=== PATIENT | female | born 1945 | race Two or more races ===

== ENCOUNTER 2017-08-02 03:24 | Inpatient (IN) | payer MEDICAID ==
[~2017-08-02] VITALS: Ht 152.4 cm; Wt 65.9 kg
[2017-08-02 04:06] LABS: Basophils # (auto) 0 uL; Basophils % (auto) 0.7 % (0.0-2.0); Eosinophils # (auto) 0 uL; Eosinophils % (auto) 0.6 % (0.0-7.0); Hematocrit 47.6 % (36.0-46.0); Hemoglobin 16.9 g/dL (12.2-16.2); Lymphocytes % (auto) 17.8 % (10.0-50.0); Mean Corpuscular Hemoglobin 32.3 pg (28.0-32.0); Mean Corpuscular Hgb Conc. 35.6 g/dL (32.0-36.0); Mean Corpuscular Volume 90.7 fL (80.0-100.0); Monocytes # (auto) 0.7 uL; Monocytes % (auto) 11.4 % (0.0-12.0); Neutrophils % (auto) 69.5 % (37.0-80.0); Nucleated Red Blood Cells % 0.2 %; Platelet Count (auto) 244 10^3/uL (140-450); Red Blood Cells 5.25 10^6/uL (4.0-5.20); Red Cell Distribution Width 13.1 % (11.8-14.3); White Blood Cell 5.8 10^3/uL (4.4-10.8)
[2017-08-02 04:24] LABS: Albumin 4.4 g/dL (3.4-5.0); BUN/Creatinine Ratio 13.3; Calcium 9.4 mg/dL (8.5-10.1); Potassium 3.7 mmol/L (3.5-5.1)
[2017-08-02 04:27] LABS: Bilirubin, Total 1.2 mg/dL (0.2-1.0); Total Protein 8.3 g/dL (6.4-8.2)
[2017-08-02 05:01] LABS: Urine Bacteria NONE SEEN /hpf (None Seen); Urine Blood TRACE /uL (Negative); Urine Mucus FEW (None Seen); Urine Specific Gravity 1.022 (1.001-1.035); Urine WBC 2 /hpf (0 - 5)
[2017-08-02] MEDS ORDERED: NALBUPHINE HCL 10 MG/1ml INJECTION IV ONE (06:00)
[2017-08-02] MEDS ORDERED: ONDANSETRON HCL 4 MG/2 ML VIAL IV ONE (06:00)
[2017-08-02] MEDS ORDERED: SODIUM CHLORIDE 0.9% 500 ML IVB ONE (07:36)
[2017-08-02] MEDS ORDERED: PANTOPRAZOLE 40 MG/10 ML VIAL IV STA (07:36)
[2017-08-02] MEDS ORDERED: PROCHLORPERAZINE EDISYLATE 5 MG/ML 2ML VIAL IV ONE (07:45)
[2017-08-02] MEDS ORDERED: NITROGLYCERIN 0.4 MG SL TAB SL PRN (08:45)
[2017-08-02] MEDS ORDERED: HYDROcodone-ACET 5/325MG TAB PO PRN (08:45)
[2017-08-02] MEDS ORDERED: PROMETHAZINE HCL 25 MG/ML 1ML IV PRN (08:45)
[2017-08-02] MEDS ORDERED: ACETAMINOPHEN 500 MG TAB PO PRN (08:45)
[2017-08-02] MEDS ORDERED: LORazepam 0.5 MG TAB PO PRN (08:45)
[2017-08-02] MEDS ORDERED: TEMAZEPAM 15 MG CAP PO PRN (08:45)
[2017-08-02] MEDS ORDERED: MORPHINE SULFATE 4 MG/ML SYR/VIAL IV PRN ×2 (08:45)
[2017-08-02] MEDS ORDERED: FAMOTIDINE (10MG/ML) 2ML VL IV SCH (08:45)
[2017-08-02] MEDS: SODIUM CHLORIDE 0.9% 1,000 ML IV SCH ×2 (08:59→18:44)
[2017-08-02 09:18] LABS: Hepatitis B Surface Antibody Negative
[2017-08-02 09:30] LABS: Hepatitis B Surface Antigen Negative (Negative)
[2017-08-02] MEDS: cefTRIAXone 1GM/10ml IVPUSH 10 ML IV SCH (09:39)
[2017-08-02 09:57] LABS: Hepatitis A Total Antibody Positive; Hepatitis C Antibody Negative (Negative)
[2017-08-02 10:35] LABS: Hepatitis B Core Total AB Positive
[2017-08-02] MEDS: PANTOPRAZOLE 40 MG TAB PO SCH ×2 (12:00→20:51)
[2017-08-02] MEDS: metroNIDAZOLE 500MG/100ML 100 ML IV SCH ×2 (12:31→18:35)
[2017-08-02 15:30] LABS: INR 0.95 (0.9-1.15); Partial Thromboplastin Time 31.7 sec (22.64-33.71); Prothrombin Time 10.4 sec (9.37-12.3)
[2017-08-02 17:33] VITALS: BP 148/85
[2017-08-02] MEDS ORDERED: LOSA50TA6 PO (18:18)
[2017-08-02] MEDS ORDERED: ACET-1156 PO (18:18)
[2017-08-02] MEDS ORDERED: AMIT25TA9 PO (18:18)
[2017-08-02] MEDS ORDERED: IBUP600T27 PO (18:18)
[2017-08-02 22:00] VITALS: BP 137/40
[2017-08-03] MEDS: metroNIDAZOLE 500MG/100ML 100 ML IV SCH ×3 (00:32→13:54)
[2017-08-03] MEDS: SODIUM CHLORIDE 0.9% 1,000 ML IV SCH ×2 (04:44→13:54)
[2017-08-03 05:00] VITALS: BP 127/72
[2017-08-03 07:41] LABS: Albumin 3.4 g/dL (3.4-5.0); BUN/Creatinine Ratio 20.3; Calcium 8.6 mg/dL (8.5-10.1); Potassium 3.4 mmol/L (3.5-5.1)
[2017-08-03 07:44] LABS: Bilirubin, Total 0.9 mg/dL (0.2-1.0); Total Protein 6.6 g/dL (6.4-8.2)
[2017-08-03 08:00] VITALS: BP 121/65
[2017-08-03] MEDS ORDERED: NALOXONE HCL 0.4 MG/ML VIAL ONE (08:21)
[2017-08-03] MEDS ORDERED: FLUMAZENIL 0.1 MG/ML INJ 10ML MDV IV ONE (08:21)
[2017-08-03] MEDS ORDERED: LIDOCAINE VISCOUS 2% 15ML UD ONE (08:21)
[2017-08-03] MEDS ORDERED: SODIUM CHLORIDE LOCK 10 ML ONE (08:21)
[2017-08-03] MEDS ORDERED: MIDAZOLAM HCL 5 MG/ML-1ML VIAL ONE (08:22)
[2017-08-03] MEDS ORDERED: fentaNYL CITRATE 100 MCG/2 ML VL ONE (08:23)
[2017-08-03] MEDS ORDERED: diphenhdrAMINE HCL 50 MG/1 ML VL ONE (08:23)
[2017-08-03] MEDS: cefTRIAXone 1GM/10ml IVPUSH 10 ML IV SCH (08:45)
[2017-08-03 09:00] VITALS: BP 121/65
[2017-08-03 13:00] VITALS: BP 144/72
[2017-08-03] MEDS: PANTOPRAZOLE 40 MG TAB PO SCH (13:54)
[2017-08-03 14:49] VITALS: BP 144/72
== END 2017-08-03 16:30 | disposition home or self-care (01) | DRG 392 ==
LOC: ER 03:28 → TELE 03:29 → TELE-WESTW 16:49
PROVIDERS: ADMIT Internal Medicine; ATTEND Internal Medicine
PROC: 0DB68ZX Excision of Stomach, Via Natural or Artificial Opening Endoscopic, Diagnostic (ICD-10-PCS; principal; 2017-08-03 11:16)
DX: K29.70 Gastritis, unspecified, without bleeding (principal); G40.909 Epilepsy, unspecified, not intractable, without status epilepticus; I25.9 Chronic ischemic heart disease, unspecified; J44.9 Chronic obstructive pulmonary disease, unspecified; E78.5 Hyperlipidemia, unspecified; E66.9 Obesity, unspecified; K76.0 Fatty (change of) liver, not elsewhere classified; I10 Essential (primary) hypertension; Z81.8 Family history of other mental and behavioral disorders; Z82.0 Family history of epilepsy and other diseases of the nervous system; Z82.5 Family history of asthma and other chronic lower respiratory diseases; Z82.49 Family history of ischemic heart disease and other diseases of the circulatory system; Z83.3 Family history of diabetes mellitus; Z82.62 Family history of osteoporosis; Z90.49 Acquired absence of other specified parts of digestive tract; Z68.28 Body mass index [BMI] 28.0-28.9, adult
CPT/HCPCS: 36415; 43239; 71045; 74176; 76705; 80053; 81001; 82150; 83690; 85025; 85610; 85652; 85730; 86141; 86704; 86706; 86708; 86803; 87340; 93005; 94761; 96361; 96374; 96375; C9113; J2250; J2405; J3490

== ENCOUNTER 2018-02-17 15:52 | Emergency (ER) | payer MEDICAID ==
[~2018-02-17 15:52] MED LIST: AMIT25TA9 PO; LOSA-46 PO
[2018-02-17 17:14] LABS: Basophils # (auto) 0.1 uL; Basophils % (auto) 0.9 % (0.0-2.0); Eosinophils # (auto) 0.1 uL; Hemoglobin 15.1 g/dL (12.2-16.2); Lymphocytes % (auto) 15.6 % (10.0-50.0); Mean Corpuscular Hemoglobin 32.1 pg (28.0-32.0); Mean Corpuscular Volume 91.6 fL (80.0-100.0); Monocytes # (auto) 0.5 uL; Monocytes % (auto) 7.4 % (0.0-12.0); Neutrophils # (auto) 4.6 uL; Neutrophils % (auto) 74.1 % (37.0-80.0); Nucleated Red Blood Cells % 0.1 %; Platelet Count (auto) 238 10^3/uL (140-450); Red Blood Cells 4.69 10^6/uL (4.0-5.20); Red Cell Distribution Width 13.2 % (11.8-14.3); White Blood Cell 6.2 10^3/uL (4.4-10.8)
[2018-02-17 17:45] LABS: Alanine Aminotransferase 404 U/L (13-56); Albumin 3.9 g/dL (3.4-5.0); Alkaline Phosphatase 213 U/L (45-117); Anion Gap 7 (5-15); Aspartate Aminotransferase 460 U/L (15-37); BUN/Creatinine Ratio 16.7; Bilirubin, Total 2.1 mg/dL (0.2-1.0); Blood Urea Nitrogen 18 mg/dL (7-18); Calcium 8.7 mg/dL (8.5-10.1); Carbon Dioxide 23 mmol/L (21-32); Chloride 112 mmol/L (98-107); GFR African American 64 mL/min; GFR Non-African American 53 mL/min; Glucose 104 mg/dL (74-106); Magnesium 2.8 mg/dL (1.6-2.6); Sodium 142 mmol/L (136-145); Total Protein 7.5 g/dL (6.4-8.2)
[2018-02-17 17:53] LABS: Urine Bacteria NONE SEEN /hpf (None Seen); Urine Blood Negative /uL (Negative); Urine Specific Gravity 1.009 (1.001-1.035); Urine WBC 1 /hpf (0 - 5)
[2018-02-17 21:36] VITALS: BP 146/85
== END 2018-02-17 21:39 | disposition home or self-care (01) ==
LOC: ER 15:54
DX: R10.13 Epigastric pain (principal); R11.2 Nausea with vomiting, unspecified; K21.9 Gastro-esophageal reflux disease without esophagitis; E78.5 Hyperlipidemia, unspecified; I10 Essential (primary) hypertension; Z90.49 Acquired absence of other specified parts of digestive tract; Z90.710 Acquired absence of both cervix and uterus
CPT/HCPCS: 36415; 74176; 80053; 81001; 83735; 84484; 85025; 93005

== ENCOUNTER 2018-02-23 15:51 | Inpatient (IN) | payer MEDICAID ==
[~2018-02-23] VITALS: Ht 152.4 cm; Wt 65.2 kg
[2018-02-23] MEDS ORDERED: SODIUM CHLORIDE 0.9% 1,000 ML IV ONE (16:23)
[2018-02-23] MEDS ORDERED: METOCLOPRAMIDE HCL 5MG/ml INJ 2ml VIAL IV ONE (16:30)
[2018-02-23] MEDS ORDERED: MORPHINE SULFATE 4 MG/ML SYR/VIAL IV ONE (16:30)
[2018-02-23 16:46] LABS: Basophils # (auto) 0 uL; Basophils % (auto) 0.6 % (0.0-2.0); Eosinophils # (auto) 0 uL; Eosinophils % (auto) 0.2 % (0.0-7.0); Hematocrit 48.1 % (36.0-46.0); Hemoglobin 16.5 g/dL (12.2-16.2); Lymphocytes # (auto) 0.4 uL; Lymphocytes % (auto) 7.4 % (10.0-50.0); Mean Corpuscular Hemoglobin 31.9 pg (28.0-32.0); Mean Corpuscular Hgb Conc. 34.4 g/dL (32.0-36.0); Mean Corpuscular Volume 92.7 fL (80.0-100.0); Monocytes # (auto) 0.4 uL; Monocytes % (auto) 6.6 % (0.0-12.0); Neutrophils # (auto) 4.6 uL; Neutrophils % (auto) 85.2 % (37.0-80.0); Nucleated Red Blood Cells % 0.1 %; Platelet Count (auto) 246 10^3/uL (140-450); Red Blood Cells 5.19 10^6/uL (4.0-5.20); Red Cell Distribution Width 13.6 % (11.8-14.3); White Blood Cell 5.4 10^3/uL (4.4-10.8)
[2018-02-23 16:48] LABS: Urine Bacteria NONE SEEN /hpf (None Seen); Urine Blood Negative /uL (Negative); Urine Mucus FEW (None Seen); Urine Specific Gravity 1.026 (1.001-1.035); Urine WBC 6 /hpf (0 - 5)
[2018-02-23 17:02] LABS: Alanine Aminotransferase 448 U/L (13-56); Albumin 4.1 g/dL (3.4-5.0); Anion Gap 10 (5-15); Aspartate Aminotransferase 236 U/L (15-37); BUN/Creatinine Ratio 11.2; Blood Urea Nitrogen 11 mg/dL (7-18); Calcium 9.7 mg/dL (8.5-10.1); Carbon Dioxide 24 mmol/L (21-32); Chloride 104 mmol/L (98-107); GFR African American 72 mL/min; GFR Non-African American 59 mL/min; Glucose 124 mg/dL (74-106); Lipase 75 U/L (73-393); Magnesium 2.5 mg/dL (1.6-2.6); Potassium 4.3 mmol/L (3.5-5.1); Sodium 138 mmol/L (136-145)
[2018-02-23 17:07] LABS: Alkaline Phosphatase 448 U/L (45-117); Bilirubin, Total 4.4 mg/dL (0.2-1.0); Total Protein 8.5 g/dL (6.4-8.2)
[2018-02-23] MEDS ORDERED: TEMAZEPAM 15 MG CAP PO PRN (18:00)
[2018-02-23] MEDS ORDERED: NITROGLYCERIN 0.4 MG SL TAB SL PRN (18:00)
[2018-02-23] MEDS ORDERED: cefTRIAXone 1GM/10ml IVPUSH 10 ML IV ONE ×2 (18:00)
[2018-02-23] MEDS ORDERED: LORazepam 0.5 MG TAB PO PRN (18:00)
[2018-02-23] MEDS: metroNIDAZOLE 500MG/100ML 100 ML IV SCH (18:29)
[2018-02-23] MEDS: SODIUM CHLORIDE 0.9% 1,000 ML IV SCH (18:29)
[2018-02-23] MEDS ORDERED: PROM25TA5 PO (18:49)
[2018-02-23] MEDS ORDERED: OMEP20TA PO (18:49)
[2018-02-23] MEDS ORDERED: PANT40TA2 PO (18:49)
[2018-02-23] MEDS ORDERED: OXYB15TA12 PO (18:49)
[2018-02-23] MEDS ORDERED: ONDA-101 SL (18:49)
[2018-02-23] MEDS ORDERED: MELO1TAB56 PO (18:49)
[2018-02-23] MEDS ORDERED: AMITRIPTYLINE HCL 25 MG TAB PO SCH (22:00)
[2018-02-23 22:12] VITALS: BP 164/94
[2018-02-23] MEDS: LOSARTAN POTASSIUM 50 MG TAB PO SCH (22:37)
[2018-02-24 00:44] VITALS: BP 164/94
[2018-02-24 03:41] VITALS: BP 149/80
[2018-02-24] MEDS: metroNIDAZOLE 500MG/100ML 100 ML IV SCH ×4 (06:00→18:00)
[2018-02-24] MEDS: MORPHINE SULF INJ 2 MG/ML SYRINGE 1ML IV PRN ×3 (06:02→11:20)
[2018-02-24] MEDS: SODIUM CHLORIDE 0.9% 1,000 ML IV SCH ×3 (07:15→15:59)
[2018-02-24 07:20] LABS: Amylase 88 U/L (25-115); Lipase 107 U/L (73-393)
[2018-02-24 08:33] VITALS: BP 152/88
[2018-02-24] MEDS: cefTRIAXone 1GM/10ml IVPUSH 10 ML IV SCH (09:50)
[2018-02-24] MEDS: PANTOPRAZOLE 40 MG TAB PO SCH (09:50)
[2018-02-24] MEDS: LOSARTAN POTASSIUM 50 MG TAB PO SCH ×2 (09:50→22:23)
[2018-02-24] MEDS: ONDANSETRON HCL 4 MG/2 ML VIAL IV PRN (11:20)
[2018-02-24 11:30] LABS: Basophils # (auto) 0 uL; Basophils % (auto) 0.6 % (0.0-2.0); Eosinophils # (auto) 0 uL; Eosinophils % (auto) 0.3 % (0.0-7.0); Hematocrit 44.6 % (36.0-46.0); Hemoglobin 15.4 g/dL (12.2-16.2); Lymphocytes # (auto) 0.6 uL; Lymphocytes % (auto) 9.8 % (10.0-50.0); Mean Corpuscular Hemoglobin 32.2 pg (28.0-32.0); Mean Corpuscular Hgb Conc. 34.5 g/dL (32.0-36.0); Mean Corpuscular Volume 93.1 fL (80.0-100.0); Monocytes # (auto) 0.5 uL; Neutrophils % (auto) 81.3 % (37.0-80.0); Nucleated Red Blood Cells % 0.1 %; Platelet Count (auto) 208 10^3/uL (140-450); Red Blood Cells 4.79 10^6/uL (4.0-5.20); Red Cell Distribution Width 13.3 % (11.8-14.3); White Blood Cell 6.1 10^3/uL (4.4-10.8)
[2018-02-24 11:59] LABS: Albumin 3.7 g/dL (3.4-5.0); BUN/Creatinine Ratio 11.8; Bilirubin, Total 5.7 mg/dL (0.2-1.0); Calcium 9.2 mg/dL (8.5-10.1); Potassium 3.5 mmol/L (3.5-5.1); Total Protein 7.5 g/dL (6.4-8.2)
[2018-02-24 12:11] VITALS: BP 150/94
[2018-02-24 17:34] VITALS: BP 157/89
[2018-02-25] MEDS: metroNIDAZOLE 500MG/100ML 100 ML IV SCH ×4 (00:15→18:02)
[2018-02-25 05:50] VITALS: BP 143/81
[2018-02-25 07:25] LABS: Albumin 3.2 g/dL (3.4-5.0); Bilirubin, Direct 1.5 mg/dL (0-0.2); Bilirubin, Total 2.7 mg/dL (0.2-1.0)
[2018-02-25] MEDS: SODIUM CHLORIDE 0.9% 1,000 ML IV SCH ×2 (07:54→20:21)
[2018-02-25 08:43] VITALS: BP 154/75
[2018-02-25] MEDS: cefTRIAXone 1GM/10ml IVPUSH 10 ML IV SCH (09:02)
[2018-02-25] MEDS: PANTOPRAZOLE 40 MG TAB PO SCH (12:08)
[2018-02-25] MEDS: LOSARTAN POTASSIUM 50 MG TAB PO SCH ×2 (12:09→22:46)
[2018-02-25 13:00] VITALS: BP 142/86
[2018-02-25] MEDS: ONDANSETRON HCL 4 MG/2 ML VIAL IV PRN (15:14)
[2018-02-25] MEDS: MORPHINE SULF INJ 2 MG/ML SYRINGE 1ML IV PRN (15:14)
[2018-02-25 17:00] VITALS: BP 140/72
[2018-02-26] MEDS: metroNIDAZOLE 500MG/100ML 100 ML IV SCH ×4 (00:13→18:00)
[2018-02-26 06:00] VITALS: BP 122/66
[2018-02-26 06:21] LABS: Basophils # (auto) 0 uL; Basophils % (auto) 0.9 % (0.0-2.0); Eosinophils # (auto) 0.2 uL; Eosinophils % (auto) 3.9 % (0.0-7.0); Hemoglobin 14.5 g/dL (12.2-16.2); Lymphocytes # (auto) 0.9 uL; Lymphocytes % (auto) 17.4 % (10.0-50.0); Mean Corpuscular Hgb Conc. 34.5 g/dL (32.0-36.0); Mean Corpuscular Volume 92.8 fL (80.0-100.0); Monocytes # (auto) 0.4 uL; Monocytes % (auto) 8.2 % (0.0-12.0); Neutrophils # (auto) 3.5 uL; Neutrophils % (auto) 69.6 % (37.0-80.0); Platelet Count (auto) 211 10^3/uL (140-450); Red Blood Cells 4.53 10^6/uL (4.0-5.20); Red Cell Distribution Width 13.1 % (11.8-14.3)
[2018-02-26 06:38] LABS: Potassium 3.5 mmol/L (3.5-5.1)
[2018-02-26 06:42] LABS: Albumin 3.1 g/dL (3.4-5.0); BUN/Creatinine Ratio 13.7; Calcium 8.9 mg/dL (8.5-10.1)
[2018-02-26 06:44] LABS: Total Protein 6.7 g/dL (6.4-8.2)
[2018-02-26 09:00] VITALS: BP 145/91
[2018-02-26] MEDS: PANTOPRAZOLE 40 MG TAB PO SCH (10:33)
[2018-02-26] MEDS: cefTRIAXone 1GM/10ml IVPUSH 10 ML IV SCH (10:33)
[2018-02-26] MEDS: SODIUM CHLORIDE 0.9% 1,000 ML IV SCH (10:34)
[2018-02-26] MEDS: LOSARTAN POTASSIUM 50 MG TAB PO SCH ×2 (10:34→23:05)
[2018-02-26 13:00] VITALS: BP 167/79
[2018-02-26 17:00] VITALS: BP 164/86
[2018-02-26 22:00] VITALS: BP 150/78
[2018-02-26] MEDS: MORPHINE SULF INJ 2 MG/ML SYRINGE 1ML IV PRN (22:28)
[2018-02-26] MEDS: ONDANSETRON HCL 4 MG/2 ML VIAL IV PRN (23:06)
[2018-02-27] VITALS (7 sets, daily range): BP systolic 116–176; BP diastolic 62–95
[2018-02-27] MEDS: metroNIDAZOLE 500MG/100ML 100 ML IV SCH ×5 (00:02→23:25)
[2018-02-27] MEDS: SODIUM CHLORIDE 0.9% 1,000 ML IV SCH ×3 (00:57→18:00)
[2018-02-27] MEDS: MORPHINE SULFATE 4 MG/ML SYR/VIAL IV PRN (01:36)
[2018-02-27] MEDS: cefTRIAXone 1GM/10ml IVPUSH 10 ML IV SCH (08:23)
[2018-02-27] MEDS: ONDANSETRON HCL 4 MG/2 ML VIAL IV PRN ×2 (08:23→13:50)
[2018-02-27 08:29] LABS: Albumin 3.1 g/dL (3.4-5.0); BUN/Creatinine Ratio 18.3; Potassium 3.5 mmol/L (3.5-5.1); Total Protein 6.9 g/dL (6.4-8.2)
[2018-02-27] MEDS: PANTOPRAZOLE 40 MG TAB PO SCH (10:06)
[2018-02-27] MEDS: MORPHINE SULF INJ 2 MG/ML SYRINGE 1ML IV PRN (10:06)
[2018-02-27] MEDS: LOSARTAN POTASSIUM 50 MG TAB PO SCH ×2 (10:07→21:30)
[2018-02-28] MEDS: metroNIDAZOLE 500MG/100ML 100 ML IV SCH ×4 (05:22→23:27)
[2018-02-28] MEDS: SODIUM CHLORIDE 0.9% 1,000 ML IV SCH (05:22)
[2018-02-28 05:39] VITALS: BP 140/92
[2018-02-28 06:07] LABS: Basophils # (auto) 0 uL; Eosinophils # (auto) 0.1 uL; Eosinophils % (auto) 2.6 % (0.0-7.0); Hematocrit 40.9 % (36.0-46.0); Hemoglobin 14.3 g/dL (12.2-16.2); Lymphocytes # (auto) 1.2 uL; Lymphocytes % (auto) 26.1 % (10.0-50.0); Mean Corpuscular Hemoglobin 32.3 pg (28.0-32.0); Mean Corpuscular Volume 92.3 fL (80.0-100.0); Monocytes # (auto) 0.3 uL; Monocytes % (auto) 6.4 % (0.0-12.0); Neutrophils % (auto) 63.9 % (37.0-80.0); Nucleated Red Blood Cells % 0.1 %; Platelet Count (auto) 249 10^3/uL (140-450); Red Blood Cells 4.44 10^6/uL (4.0-5.20); Red Cell Distribution Width 12.9 % (11.8-14.3); White Blood Cell 4.7 10^3/uL (4.4-10.8)
[2018-02-28 06:11] LABS: INR 0.99 (0.9-1.15); Partial Thromboplastin Time 31.2 sec (23.78-33.04); Prothrombin Time 10.6 sec (9.27-12.13)
[2018-02-28 06:30] LABS: Potassium 3.5 mmol/L (3.5-5.1)
[2018-02-28 06:36] LABS: Albumin 3.2 g/dL (3.4-5.0); BUN/Creatinine Ratio 19.7; Calcium 9.3 mg/dL (8.5-10.1)
[2018-02-28 06:40] LABS: Bilirubin, Total 1.8 mg/dL (0.2-1.0); Total Protein 6.7 g/dL (6.4-8.2)
[2018-02-28 08:00] VITALS: BP 164/99
[2018-02-28] MEDS: cefTRIAXone 1GM/10ml IVPUSH 10 ML IV SCH (09:11)
[2018-02-28] MEDS: LOSARTAN POTASSIUM 50 MG TAB PO SCH ×2 (09:12→21:16)
[2018-02-28] MEDS: PANTOPRAZOLE 40 MG TAB PO SCH (09:12)
[2018-02-28 12:00] VITALS: BP 152/102
[2018-02-28] MEDS ORDERED: IOHEXOL 300 MG/ML 100ML BOTTLE IJ ONE (12:56)
[2018-02-28] MEDS ORDERED: SUCCINYLCHOLINE CHLORIDE 20 MG/ML 10ML VIAL IV ONE (14:21)
[2018-02-28] MEDS ORDERED: MEPERIDINE HCL (50 MG/ML) 1 ML VIAL ONE (14:35)
[2018-02-28] MEDS ORDERED: fentaNYL CITRATE 100 MCG/2 ML VL ONE (14:35)
[2018-02-28] MEDS ORDERED: MIDAZOLAM HCL 1MG/1ML-2 ML VIAL ONE (14:35)
[2018-02-28] MEDS ORDERED: ETOMIDATE (2MG/ML) 20ML VIAL IV ONE (14:55)
[2018-02-28] MEDS ORDERED: DEXAMETHASONE SOD PHOS 10MG/1ML VIAL INJ ONE (14:55)
[2018-02-28] MEDS ORDERED: PROPOFOL 10 MG/ML 20 ML IV ONE (14:55)
[2018-02-28] MEDS ORDERED: ePHEDrine SULFATE 50 MG/ML AMP IV PRN (15:15)
[2018-02-28] MEDS ORDERED: MIDAZOLAM HCL 1MG/1ML-2 ML VIAL IV PRN (15:15)
[2018-02-28] MEDS ORDERED: LABETALOL HCL 5 MG/ML 4ML SYRINGE IV PRN (15:15)
[2018-02-28] MEDS ORDERED: ONDANSETRON HCL 4 MG/2 ML VIAL IV ONE (15:15)
[2018-02-28] MEDS ORDERED: HYDROmorphone HCL 2 MG/ML VL IV PRN (15:15)
[2018-02-28] MEDS ORDERED: MORPHINE SULFATE 4 MG/ML SYR/VIAL IV PRN (15:15)
[2018-02-28] MEDS ORDERED: hydrALAZINE HCL 20 MG/ML VL IV PRN (15:15)
[2018-02-28] MEDS ORDERED: KETOROLAC TROMETH 30 MG/ML 1ML VIAL IV ONE (15:15)
[2018-02-28] MEDS ORDERED: MORPHINE SULFATE 4 MG/ML SYR/VIAL IV ONE (16:00)
[2018-02-28 16:49] VITALS: BP 180/95
[2018-02-28] MEDS ORDERED: METOPROLOL TARTRATE 25 MG TAB PO ONE (17:30)
[2018-02-28 21:41] VITALS: BP 142/81
[2018-02-28 23:13] VITALS: BP 152/84
[2018-03-01] MEDS: metroNIDAZOLE 500MG/100ML 100 ML IV SCH ×4 (05:12→23:57)
[2018-03-01 05:23] VITALS: BP 143/82
[2018-03-01 06:07] LABS: Albumin 3.3 g/dL (3.4-5.0); BUN/Creatinine Ratio 22.2; Bilirubin, Total 1.3 mg/dL (0.2-1.0); Calcium 9.3 mg/dL (8.5-10.1); Total Protein 7.1 g/dL (6.4-8.2)
[2018-03-01 08:00] VITALS: BP 175/92
[2018-03-01] MEDS: cefTRIAXone 1GM/10ml IVPUSH 10 ML IV SCH (08:10)
[2018-03-01] MEDS: LOSARTAN POTASSIUM 50 MG TAB PO SCH ×2 (08:10→22:09)
[2018-03-01] MEDS: PANTOPRAZOLE 40 MG TAB PO SCH (09:30)
[2018-03-01] MEDS: METOPROLOL TARTRATE 25 MG TAB PO SCH (09:31)
[2018-03-01] MEDS: SODIUM CHLORIDE 0.9% 1,000 ML IV SCH (09:31)
[2018-03-01 09:54] VITALS: BP 175/92
[2018-03-01 13:08] VITALS: BP 143/83
[2018-03-01] MEDS ORDERED: MORPHINE SULFATE 4 MG/ML SYR/VIAL IV PRN ×2 (16:00)
[2018-03-01 16:47] VITALS: BP 140/82
[2018-03-01] MEDS: MORPHINE SULFATE 4 MG/ML SYR/VIAL IV PRN (17:16)
[2018-03-01] MEDS: ONDANSETRON HCL 4 MG/2 ML VIAL IV PRN (20:18)
[2018-03-01 23:11] VITALS: BP 173/94
[2018-03-02] MEDS: SODIUM CHLORIDE 0.9% 1,000 ML IV SCH ×2 (00:27→05:34)
[2018-03-02] MEDS: ONDANSETRON HCL 4 MG/2 ML VIAL IV PRN (01:48)
[2018-03-02] MEDS: MORPHINE SULFATE 4 MG/ML SYR/VIAL IV PRN (01:48)
[2018-03-02] MEDS: LABETALOL HCL 5 MG/ML ML 20ML VIAL IV PRN (04:31)
[2018-03-02 05:04] VITALS: BP 174/103
[2018-03-02] MEDS: metroNIDAZOLE 500MG/100ML 100 ML IV SCH ×3 (05:41→18:32)
[2018-03-02 06:38] LABS: Basophils # (auto) 0 uL; Basophils % (auto) 0.5 % (0.0-2.0); Eosinophils # (auto) 0.1 uL; Hematocrit 41.8 % (36.0-46.0); Hemoglobin 14.6 g/dL (12.2-16.2); Lymphocytes # (auto) 1.2 uL; Lymphocytes % (auto) 17.3 % (10.0-50.0); Mean Corpuscular Hemoglobin 31.9 pg (28.0-32.0); Mean Corpuscular Hgb Conc. 34.8 g/dL (32.0-36.0); Mean Corpuscular Volume 91.7 fL (80.0-100.0); Monocytes # (auto) 0.4 uL; Neutrophils # (auto) 5.2 uL; Neutrophils % (auto) 75.2 % (37.0-80.0); Nucleated Red Blood Cells % 0.1 %; Platelet Count (auto) 285 10^3/uL (140-450); Red Blood Cells 4.56 10^6/uL (4.0-5.20); Red Cell Distribution Width 13.2 % (11.8-14.3); White Blood Cell 6.9 10^3/uL (4.4-10.8)
[2018-03-02 07:03] LABS: Albumin 3.2 g/dL (3.4-5.0); BUN/Creatinine Ratio 16.2; Bilirubin, Total 3.3 mg/dL (0.2-1.0); Potassium 3.7 mmol/L (3.5-5.1); Total Protein 6.7 g/dL (6.4-8.2)
[2018-03-02 08:00] VITALS: BP 143/79
[2018-03-02] MEDS: cefTRIAXone 1GM/10ml IVPUSH 10 ML IV SCH (09:45)
[2018-03-02] MEDS: LOSARTAN POTASSIUM 50 MG TAB PO SCH ×2 (09:46→22:32)
[2018-03-02] MEDS: PANTOPRAZOLE 40 MG TAB PO SCH (09:46)
[2018-03-02] MEDS: METOPROLOL TARTRATE 25 MG TAB PO SCH (09:49)
[2018-03-02 12:47] VITALS: BP 126/69
[2018-03-02 17:00] VITALS: BP 149/81
[2018-03-02 22:00] VITALS: BP 144/66
[2018-03-03] MEDS: metroNIDAZOLE 500MG/100ML 100 ML IV SCH ×5 (00:54→23:50)
[2018-03-03] MEDS: SODIUM CHLORIDE 0.9% 1,000 ML IV SCH ×2 (04:59→19:21)
[2018-03-03 05:00] VITALS: BP 172/91
[2018-03-03] MEDS: LABETALOL HCL 5 MG/ML ML 20ML VIAL IV PRN (05:08)
[2018-03-03 06:43] LABS: Basophils # (auto) 0 uL; Basophils % (auto) 0.7 % (0.0-2.0); Eosinophils # (auto) 0.2 uL; Eosinophils % (auto) 3.1 % (0.0-7.0); Hematocrit 41.7 % (36.0-46.0); Hemoglobin 14.5 g/dL (12.2-16.2); Lymphocytes # (auto) 1.5 uL; Lymphocytes % (auto) 27.6 % (10.0-50.0); Mean Corpuscular Hemoglobin 32.2 pg (28.0-32.0); Mean Corpuscular Hgb Conc. 34.9 g/dL (32.0-36.0); Mean Corpuscular Volume 92.3 fL (80.0-100.0); Monocytes # (auto) 0.3 uL; Monocytes % (auto) 5.7 % (0.0-12.0); Neutrophils # (auto) 3.4 uL; Neutrophils % (auto) 62.9 % (37.0-80.0); Nucleated Red Blood Cells % 0.1 %; Platelet Count (auto) 276 10^3/uL (140-450); Red Blood Cells 4.51 10^6/uL (4.0-5.20); Red Cell Distribution Width 13.1 % (11.8-14.3); White Blood Cell 5.4 10^3/uL (4.4-10.8)
[2018-03-03 07:06] LABS: Albumin 3.1 g/dL (3.4-5.0); BUN/Creatinine Ratio 13.9; Bilirubin, Total 1.4 mg/dL (0.2-1.0); Calcium 9.1 mg/dL (8.5-10.1); Potassium 3.7 mmol/L (3.5-5.1); Total Protein 6.5 g/dL (6.4-8.2)
[2018-03-03 09:00] VITALS: BP 159/87
[2018-03-03] MEDS: cefTRIAXone 1GM/10ml IVPUSH 10 ML IV SCH (09:07)
[2018-03-03] MEDS: LOSARTAN POTASSIUM 50 MG TAB PO SCH ×2 (09:09→21:53)
[2018-03-03] MEDS: PANTOPRAZOLE 40 MG TAB PO SCH (09:09)
[2018-03-03] MEDS: METOPROLOL TARTRATE 25 MG TAB PO SCH (09:09)
[2018-03-03 13:22] VITALS: BP 169/82
[2018-03-03] MEDS ORDERED: ENALAPRIL MALEATE 2.5 MG TAB PO ONE (16:30)
[2018-03-03 17:00] VITALS: BP 183/96
[2018-03-03 22:00] VITALS: BP_SYST 125; BP_SYST 167; BP_DIAS 85; BP_DIAS 88
[2018-03-04 05:00] VITALS: BP 180/77
[2018-03-04] MEDS: LABETALOL HCL 5 MG/ML ML 20ML VIAL IV PRN (05:08)
[2018-03-04] MEDS: metroNIDAZOLE 500MG/100ML 100 ML IV SCH ×2 (05:24→12:23)
[2018-03-04 06:36] LABS: Albumin 3.3 g/dL (3.4-5.0); BUN/Creatinine Ratio 11.6; Bilirubin, Total 1.2 mg/dL (0.2-1.0); Calcium 9.1 mg/dL (8.5-10.1); Potassium 3.5 mmol/L (3.5-5.1)
[2018-03-04] MEDS: cefTRIAXone 1GM/10ml IVPUSH 10 ML IV SCH (09:21)
[2018-03-04] MEDS: LOSARTAN POTASSIUM 50 MG TAB PO SCH (09:23)
[2018-03-04] MEDS: PANTOPRAZOLE 40 MG TAB PO SCH (09:23)
[2018-03-04] MEDS: METOPROLOL TARTRATE 25 MG TAB PO SCH (09:23)
[2018-03-04 09:31] VITALS: BP 147/90
[2018-03-04] MEDS ORDERED: ENALAPRIL MALEATE 2.5 MG TAB PO SCH (10:00)
[2018-03-04 12:53] VITALS: BP 130/72
== END 2018-03-04 14:51 | disposition home or self-care (01) ==
LOC: ER 15:51 → TELE-CENTR 15:52
PROVIDERS: ADMIT Internal Medicine; ATTEND Internal Medicine
PROC: BF101ZZ Fluoroscopy of Bile Ducts using Low Osmolar Contrast (ICD-10-PCS; 2018-02-28)
PROC: 0FCC8ZZ Extirpation of Matter from Ampulla of Vater, Via Natural or Artificial Opening Endoscopic (ICD-10-PCS; principal; 2018-02-28 14:32)
DX: K80.33 Calculus of bile duct with acute cholangitis with obstruction (principal); E44.0 Moderate protein-calorie malnutrition; N39.0 Urinary tract infection, site not specified; E78.5 Hyperlipidemia, unspecified; I10 Essential (primary) hypertension; K21.9 Gastro-esophageal reflux disease without esophagitis; D35.00 Benign neoplasm of unspecified adrenal gland; M19.90 Unspecified osteoarthritis, unspecified site; K59.00 Constipation, unspecified; Z68.28 Body mass index [BMI] 28.0-28.9, adult; Z82.0 Family history of epilepsy and other diseases of the nervous system; Z82.49 Family history of ischemic heart disease and other diseases of the circulatory system; Z82.62 Family history of osteoporosis; Z83.3 Family history of diabetes mellitus; Z90.49 Acquired absence of other specified parts of digestive tract; Z90.710 Acquired absence of both cervix and uterus; Z82.5 Family history of asthma and other chronic lower respiratory diseases; Z91.012 Allergy to eggs; Z81.8 Family history of other mental and behavioral disorders
CPT/HCPCS: 36415; 71046; 74018; 74176; 74181; 76001; 76705; 80053; 80076; 81001; 82150; 83690; 83735; 84443; 84484; 85025; 85610; 85730; 86850; 86900; 86901; 87081; 93005; 96374; 96375; A6257; J0330; J0696; J1100; J2250; J2405; J2704; J3490

== ENCOUNTER 2019-05-19 22:43 | Emergency (ER) | payer MEDICAID ==
[~2019-05-19] VITALS: Ht 149.9 cm; Wt 72.3 kg
[~2019-05-19 22:43] MED LIST changes: -AMIT25TA9 PO; -LOSA-46 PO; +LOSA-69 PO; +MELO1TAB56 PO; +OMEP20TA PO; +ONDA-101 SL; +OXYB15TA12 PO; +PANT40TA2 PO; +PROM25TA5 PO
[2019-05-19] MEDS ORDERED: diphenhdrAMINE HCL 50 MG/1 ML VL IM ONE (23:30)
[2019-05-20] MEDS ORDERED: methylPREDNISolone SOD SUCC 125 MG/2 ML VL IV ONE (01:00)
[2019-05-20] MEDS ORDERED: SODIUM CHLORIDE 0.9% 1,000 ML IV ONE (01:00)
[2019-05-20] MEDS ORDERED: ALBUTEROL SULF 2.5 MG/0.5ML(0.5%) NEB SOLN NEB ONE (01:45)
[2019-05-20] MEDS ORDERED: IPRATROPIUM BROM 0.5 MG/2.5ML INH SOL NEB ONE (01:45)
[2019-05-20] MEDS ORDERED: EPINEPHrine HCL 1 MG/1 ML AMP SC ONE (01:45)
[2019-05-20 02:43] VITALS: BP 110/59
== END 2019-05-20 03:37 | disposition home or self-care (01) ==
LOC: ER 22:48
DX: T78.40XA Allergy, unspecified, initial encounter (principal); M19.90 Unspecified osteoarthritis, unspecified site; K21.9 Gastro-esophageal reflux disease without esophagitis; E78.00 Pure hypercholesterolemia, unspecified; I10 Essential (primary) hypertension; X58.XXXA Exposure to other specified factors, initial encounter
CPT/HCPCS: 94640; 96372; 96374; 99283; J0171; J1200; J2930; J7030; J7611; J7644

== ENCOUNTER 2024-06-09 15:36 | Emergency (ER) | payer MEDICAID ==
[~2024-06-09] VITALS: Ht 152.4 cm; Wt 68.3 kg
[~2024-06-09 15:36] MED LIST changes: +LOSA-534 PO; -LOSA-69 PO; +MELO15TA29 PO; -MELO1TAB56 PO; +PROM25TA10 PO; -PROM25TA5 PO
[2024-06-09 19:07] VITALS: BP 135/68; PULSE 80; RESP 16; TEMP 97.5; O2SAT 97
--- NOTE | 2024-06-09 19:23 | DVH ---
EXAM: CT HEAD WITHOUT CONTRAST INDICATION: headache TECHNIQUE: CT of the head without intravenous contrast. Radiation Dose : 1. Head: CT Dose: CTDI volume is 49 mGy. Dose-length product is 787 mGy*cm The dose indicators for CT are the volume Computed Tomography (CT) Dose Index (CTDIvol) and the Dose Length Product (DLP), and are measured in units of mGy and mGy-cm, respectively. These indicators are not patient dose, but values generated from the CT scanner acquisition factors. The report includes radiation exposure data for exposures received during this examination. COMPARISON: None FINDINGS: There is no evidence of acute intracranial hemorrhage, extra-axial collection, mass effect, midline s hift, herniation or hydrocephalus. The ventricles, sulci and cisterns are age appropriate. The lynn-white differentiation is intact. Patchy periventricular and subcortical white matter hypoattenuation is nonspecific but may be related to small vessel ischemic disease. The visualized paranasal sinuses and mastoid air cells are clear. The surrounding soft tissues and osseous structures are unremarkable. IMPRESSION: 1. No acute intracranial abnormality. 2. Chronic microvascular ischemic changes. Radiation optimization: All CT scans at this facility use at least one of these dose optimization rm hniques: automated exposure control mA and/or kV adjustment per patient size (includes targeted exam s where dose is matched to clinical indication) or iterative reconstruction.
--- NOTE | 2024-06-09 19:31 | ED.PDOC ---
HPI (NEURO) HPI Comments 78-year-old female presents to ER with complaints of headache x1 day. Patient reports she has been experiencing right-sided headache and "high blood pressure" x 1 day. Patient's blood pressure on arrival to ER is noted be 135/68 and patient is ambulatory, with steady gait, alert and oriented x4, in no distress. Denies any current pain and states that she did take her losartan blood pressure medication as prescribed this morning. She rates her current right-sided headache pain a 10/10. Denies fever, nausea/vomiting, numbness/tingling, dizziness, shortness of breath, chest pain, palpitations, vision changes, head injury, confusion or any further symptoms/complaints Chief Complaint: Headache Time Seen by MD: 18:08 Primary Care Provider: RAMOS Reviewed Notes: Nurses Notes, Medications, Allergies Information Source: Patient Mode of Arrival: Ambulatory Past Medical History PAST MEDICAL HISTORY: Arthritis, GERD, High Lipids, HTN Surgical History: Cholecystectomy, Hysterectomy ROD HANGER History: No Pertinent ROD HANGER History Family History Family History: Unknown Social History Smoker: Non-Smoker Alcohol: Denies ETOH Use Drugs: Denies Drug Use Lives In: Home Constitutional: denies: chills, diaphoresis, fatigue, fever, malaise, sweats, weakness, others EENTM: denies: blurred vision, double vision, ear bleeding, ear discharge, ear drainage, ear pain, ear ringing, eye pain, eye redness, hearing loss, mouth pain, mouth swelling, nasal discharge, nose bleeding, nose congestion, nose pain, photophobia, tearing, throat pain, throat swelling, voice changes, others Respiratory: denies: cough, hemoptysis, orthopnea, SOB at rest, shortness of breath, SOB with excertion, stridor, wheezing, others Cardiovascular: denies: chest pain, dizzy spells, diaphoresis, Dyspnea on exertion, edema, irregular heart beat, left arm pain, lightheadedness, palpitations, PND, syncope, others Gastrointestinal: denies: abdomen distended, abdominal pain, blood streaked bowels, constipated, diarrhea, dysphagia, difficulty swallowing, hematemesis, melena, nausea, poor appetite, poor fluid intake, rectal bleeding, rectal pain, vomiting, others Genitourinary: denies: abnormal vagina bleeding, burning, dyspareunia, dysuria, flank pain, frequency, hematuria, incontinence, pain, , vagina discharge, urgency, others Neurological: reports: others (As stated in HPI) Musculoskeletal: denies: back pain, gout, joint pain, joint swelling, muscle pain, muscle stiffness, neck pain, others Integumetry: denies: bruises, change in color, change in hair/nails, dryness, laceration, lesions, lumps, rash, wounds, others Allergic/Immunocompromised: denies: Difficulty Healing, Frequent Infections, Hives, Itching, others Hematologic/Lymphatic: denies: anemia, blood clots, easy bleeding, easy brui sing, swollen glands, others Endocrine: denies: excessive hunger, excessive sweating, excessive thirst, ex cessive urination, flushing, intolerance to cold, intolerance to heat, unexplained weight gain, unexplained weight loss, others Psychiatric: denies: anxiety, bipolar disorder, depression, hopeless, panic disorder, schizophrenia, sleepless, suicidal, others Physical Exam General Appearance: No Apparent Distress HEENT: Normal ENT Inspection, PERRL/EOMI, Pharynx Normal, TMs Normal Neck: Full Range of Motion, Non-Tender, Normal Respiratory: Chest Non-Tender, Lungs Clear, No Accessory Muscle Use, No Respiratory Distress, Normal Breath Sounds Cardiovascular: No Murmur, No Gallop, Regular Rate/Rhythm Breast Exam: Deferred Gastrointestinal: NOT DONE Genitalia: Deferred Pelvic: Deferred Rectal: Deferred Extremities: Normal capillary refill, Normal range of motion Neurologic: Alert, finisher screwdown II-XII nml as Tested, No Motor Deficits, Normal Affect, Normal Mood, No Sensory Deficits Cerebellar Function: Normal Reflexes: Normal Skin: Dry, Normal Color, Warm Peripheral Pulses: 2+ Radial (R), 2+ Radial (L), 2+ Brachial (R), 2+ Brachial (L) Lymphatic: No Adenopathy Was a procedure done? Was a procedure done?: No Sedation Sedation?: No Differential Diagnosis (SZ) Headache: Intracerebral Hemorrhage, Subarachnoid Hemorrhage, Subdural Hemorrhage, Mass Lesion X-Ray, Labs, Meds, VS Vital Signs Date Time Temp Pulse Resp B/P (MAP) Pulse Ox O2 Delivery O2 Flow Rate FiO2 06/09/24 19:07 97.5 80 16 135/68 (90) 97 97.5 06/09/24 19:07 80 16 97 Room Air 06/09/24 16:58 97.5 80 16 135/68 (98) 97 PATIENT: JACEK WEBER: [id number]: [id number] : 1945 LOC: ER ROOM / BED: / AGE / SEX: 78 / F ADM STATUS: REG ER SERVICE 07 ORDERING PHYSICIAN: RADHA LARA PROCEDURE(s): HWOCT - HEAD WITHOUT CONTRAST REASON: headache ORDER NUMBER(s): [id number], ACCESSION NUMBER(s): [id number] EXAM: CT HEAD WITHOUT CONTRAST INDICATION: headache TECHNIQUE: CT of the head without intravenous contrast. Radiation Dose : 1. Head: CT Dose: CTDI volume is 49 mGy. Dose-length product is 787 mGy*cm The dose indicators for CT are the volume Computed Tomography (CT) Dose Index ( CTDIvol) and the Dose Length Product (DLP), and are measured in units of mGy and mGy-cm, respectively. These indicators are not patient dose, but values generated from the CT scanner acquisition factors. The report includes radiation exposure data for exposures received during this examination. COMPARISON: None FINDINGS: There is no evidence of acute intracranial hemorrhage, extra-axial collection, mass effect, midline shift, herniation or hydrocephalus. The ventricles, sulci and cisterns are age appropriate. The lynn-white differentiation is intact. Patchy periventricular and subcortical white matter hypoattenuation is n onspecific but may be related to small vessel ischemic disease. The visualized paranasal sinuses and mastoid air cells are clear. The surrounding soft tissues and osseous structures are unremarkable. IMPRESSION: 1. No acute intracranial abnormality. 2. Chronic microvascular ischemic changes. Radiation optimization: All CT scans at this facility use at least one of these dose optimization techniques: automated exposure control mA and/or kV adjustment per patient size (includes targeted exams where dose is matched to clinical indication) or iterative reconstruction. ATED BY: FARHANA GOMEZ MD DICTATED DATE/TIME: 06/09/241920 SIGNED BY: FARHANA GOMEZ MD SIGNED DATE/TIME: 06/09/241920 CC: CT head w/o contrast reviewed Patient had improvement in symptoms and in no distress during ER visit/prior to discharge Advised to monitor blood pressure readings closely at home Advised to continue blood pressure medications as prescribed Advised to follow up with PCP in 1-2 days Patient alert and oriented x4 prior to discharge. Patient verbalized understanding and agreeable with current plan of care Advised to return to ER immediately if symptoms worsen Time of 1ST Reevaluation: 19:02 Reevaluation 1ST: N/A Time of 2ND Reevaluation: 19:20 Reevaluation 2ND: Improved Patient Education/Counseling: Diagnosis, Treatment, Prognosis, Need For Follow Up Family Education/Counseling: No Family Present Departure 1 Departure Time of Disposition: 19:22 Impression: Primary Impression: Migraine headache Qualified Codes: G43.909 - Migraine, unspecified, not intractable, without status migrainosus Disposition: HOME / SELF CARE / HOMELESS Condition: Stable e-Prescriptions Acetaminophen (Acetaminophen) 500 Mg Tab 500 MG PO Q4HPRN, #30 TAB 0 Refills Prov: RADHA LARA 06/09/24 Discharged With: Friend Critical Care Note Critical Care Time?: No Stability Stability form required: No Heart Score Heart Score: Heart Score Response (Comments) Value History N/A 0 EKG N/A 0 Age N/A 0 Risk Factors N/A 0 Troponin N/A 0 Total 0 RADHA LARA Jun 09, 2024 19:31
[2024-06-09] MEDS ORDERED: ACET500T58 PO (19:41)
== END 2024-06-09 19:39 | disposition home or self-care (01) ==
LOC: ER 15:36
DX: G43.909 Migraine, unspecified, not intractable, without status migrainosus (principal); I10 Essential (primary) hypertension; K21.9 Gastro-esophageal reflux disease without esophagitis; M19.90 Unspecified osteoarthritis, unspecified site; Z90.49 Acquired absence of other specified parts of digestive tract; Z90.710 Acquired absence of both cervix and uterus
CPT/HCPCS: 70450

== ENCOUNTER 2024-10-22 19:07 | Emergency (ER) | payer MEDICAID ==
[~2024-10-22] VITALS: Ht 152.4 cm; Wt 69.5 kg
[~2024-10-22 19:07] MED LIST changes: +ACET500T58 PO
[2024-10-22 19:41] LABS: Basophils # (auto) 0.1 10 ^3/uL (0-0.2); Basophils % (auto) 1.3 % (0.0-2.0); Eosinophils # (auto) 0.3 10 ^3/uL (0-0.8); Eosinophils % (auto) 4.4 % (0.0-7.0); Hematocrit 46.1 % (36.0-46.0); Hemoglobin 16.2 g/dL (12.2-16.2); Lymphocytes # (auto) 1.9 10 ^3/uL (0.4-5.4); Lymphocytes % (auto) 31.8 % (10.0-50.0); Mean Corpuscular Hemoglobin 31.6 pg (28.0-32.0); Mean Corpuscular Hgb Conc. 35.2 g/dL (32.0-36.0); Mean Corpuscular Volume 89.8 fL (80.0-100.0); Monocytes # (auto) 0.5 10 ^3/uL (0-1.3); Monocytes % (auto) 7.6 % (0.0-12.0); Neutrophils # (auto) 3.3 10 ^3/uL (1.6-8.6); Neutrophils % (auto) 54.9 % (37.0-80.0); Nucleated Red Blood Cells % 0.1 %; Platelet Count (auto) 253 10^3/uL (140-450); Red Blood Cells 5.14 10^6/uL (4.0-5.20); Red Cell Distribution Width 13.5 % (11.8-14.3)
[2024-10-22 20:02] LABS: Alanine Aminotransferase 25 U/L (7-40); Albumin 4.7 g/dL (3.2-4.8); Alkaline Phosphatase 109 U/L (46-116); Anion Gap 9 (5-15); Aspartate Aminotransferase 17 U/L (13-40); BUN/Creatinine Ratio 20.8 (10.0-20.0); Bilirubin, Total 0.6 mg/dL (0.2-1.0); Blood Urea Nitrogen 15 mg/dL (9-23); Calcium 10.3 mg/dL (8.7-10.4); Carbon Dioxide 25 mmol/L (20-31); Chloride 104 mmol/L (98-107); Glucose 98 mg/dL (74-106); Magnesium 2.2 mg/dL (1.6-2.6); Potassium 4.2 mmol/L (3.5-5.1); Sodium 138 mmol/L (136-145); Total Protein 7.3 g/dL (5.7-8.2)
--- NOTE | 2024-10-22 20:15 | ED.PDOC ---
History of Present Illness HPI Comments 79 year old female presents to the ED with a chief complaint of headache onset 2 days. Patient states she has been experiencing headache as well as bilateral arm pain with tingling/numbness for the past 2 days. 's home health nurse checked patient's BP, was elevated and recommended patient to come to ED. Patient states she is compliant with her Losartan medication. Upon ED arrival BP was 173/91. PMHx HTN, HLD. Denies chest pain, shortness of breath, nausea, vomiting, diarrhea, dysuria, hematuria, fevers. No other symptoms or modifying factors present at this time. Time Seen by MD: 20:02 Primary Care Provider: RAMOS Reviewed Notes: Medications, Allergies Allergies: Coded Allergies: Eggs or Egg-derived Products (Verified Allergy, Unknown, 01/19/15) Home Meds Active Scripts Amlodipine Besylate (Amlodipine Besylate) 5 Mg Tab, 1 TAB PO DAILY for 90 Days, #90 TAB 5 Refills Prov:SUDHA GANDHI MD 10/22/24 Acetaminophen (Acetaminophen) 500 Mg Tab, 500 MG PO Q4HPRN, #30 TAB 0 Refills Prov:RADHA LARA 06/09/24 Reported Medications Meloxicam (Meloxicam) 15 Mg Tab, 1 TAB PO DAILY, #30 TAB 2 Refills 02/23/18 Oxybutynin Chloride (Ditropan Xl) 15 Mg Tab, 5 MG PO BID, TAB 02/23/18 Ondansetron (Zofran Odt) 4 Mg Tab, 1 TAB SL Q6HP PRN for NAUSEA / VOMITING, #15 TAB 02/23/18 Pantoprazole Sodium Sesquihydr (Protonix) 40 Mg Tab, 40 MG PO DAILY, #30 TAB 02/23/18 Omeprazole (Gnp Omeprazole) 20 Mg Tab, 1 TAB PO DAILY, #90 TAB 1 Refill 02/23/18 Promethazine Hcl (Promethazine Hcl) 25 Mg Tab, 1 TAB PO Q6HPRN, #30 TAB 02/23/18 Losartan Potassium (Losartan Potassium) 50 Mg Tab, 50 MG PO BID, TAB 08/02/17 Information Source: Patient Mode of Arrival: Ambulatory Severity: Moderate Timing: Days Duration: Since onset Prehospital treatment: None Past Medical History PAST MEDICAL HISTORY: Arthritis, GERD, High Lipids, HTN Surgical History: Cholecystectomy, Hysterectomy DENTAL AMALGAM PROCESSOR History: No Pertinent DENTAL AMALGAM PROCESSOR History Family History Family History: Unknown Social History Smoker: Non-Smoker Alcohol: Denies ETOH Use Drugs: Denies Drug Use Lives In: Home Constitutional: denies: chills, diaphoresis, fatigue, fever, malaise, sweats, weakness, others EENTM: denies: blurred vision, double vision, ear bleeding, ear discharge, ear drainage, ear pain, ear ringing, eye pain, eye redness, hearing loss, mouth pain, mouth swelling, nasal discharge, nose bleeding, nose congestion, nose pain, photophobia, tearing, throat pain, throat swelling, voice changes, others Respiratory: denies: cough, hemoptysis, orthopnea, SOB at rest, shortness of breath, SOB with excertion, stridor, wheezing, others Cardiovascular: reports: others (hypertension); denies: chest pain, dizzy spells, diaphoresis, Dyspnea on exertion, edema, irregular heart beat, left arm pain, lightheadedness, palpitations, PND, syncope Gastrointestinal: denies: abdomen distended, abdominal pain, blood streaked b owels, constipated, diarrhea, dysphagia, difficulty swallowing, hematemesis, melena, nausea, poor appetite, poor fluid intake, rectal bleeding, rectal pain, vomiting, others Genitourinary: denies: abnormal vagina bleeding, burning, dyspareunia, dysuria, flank pain, frequency, hematuria, incontinence, pain, , vagina discharge, urgency, others Neurological: reports: headache, numbness (bilateral arms ), tingling (bilateal arms ); denies: dizziness, fainting, left sided numbness, left sided weakness, paresthesia, pre-existing deficit, right sided numbness, right sided weakness, seizure, speech problems, tremors, weakness, others Musculoskeletal: reports: others (bilateal arm pain); denies: back pain, gout, joint pain, joint swelling, muscle pain, muscle stiffness, neck pain Integumetry: denies: bruises, change in color, change in hair/nails, dryness, laceration, lesions, lumps, rash, wounds, others Allergic/Immunocompromised: denies: Difficulty Healing, Frequent Infections, Hives, Itching, others Hematologic/Lymphatic: denies: anemia, blood clots, easy bleeding, easy bruising, swollen glands, others Endocrine: denies: excessive hunger, excessive sweating, excessive thirst, excessive urination, flushing, intolerance to cold, intolerance to heat, unexplained weight gain, unexplained weight loss, others Psychiatric: denies: anxiety, bipolar disorder, depression, hopeless, panic d isorder, schizophrenia, sleepless, suicidal, others All Other Systems: Reviewed and Negative Physical Exam General Appearance: No Apparent Distress, Normal HEENT: Normal ENT Inspection, Pharynx Normal, TMs Normal Neck: Full Range of Motion, Non-Tender, Normal, Normal Inspection Respiratory: Chest Non-Tender, Lungs Clear, No Accessory Muscle Use, No Respiratory Distress, Normal Breath Sounds Cardiovascular: No Edema, No JVD, No Murmur, No Gallop, Normal Peripheral Pulses, Regular Rate/Rhythm Breast Exam: Deferred Gastrointestinal: No Organomegaly, Non Tender, No Pulsatile Mass, Normal Bowel Sounds, Soft Genitalia: Deferred Pelvic: Deferred Rectal: Deferred Extremities: No calf tenderness, Normal capillary refill, Normal inspection, Normal range of motion, Non-tender, No pedal edema Musculoskeletal : Apperance: Normal Neurologic: Alert, personal injury law specialist II-XII nml as Tested, No Motor Deficits, Normal Affect, Normal Mood, No Sensory Deficits Cerebellar Function: Normal Reflexes: Normal Skin: Dry, Normal Color, Warm Lymphatic: No Adenopathy Was a procedure done? Was a procedure done?: No Differential Dx Considerations may include: Differential diagnosis includes but not limited to: angina, myocardial infarction, ischemic stroke, intracranial hemorrhage, acute renal injury, end- organ failure and others X-Ray, Labs, Meds, VS Vital Signs Date Time Temp Pulse Resp B/P (MAP) Pulse Ox O2 Delivery O2 Flow Rate FiO2 10/23/24 04:00 49 13 102/55 (71) 97 10/23/24 02:00 75/29 (44) 10/23/24 01:30 75/29 10/23/24 00:34 97.7 69 14 174/96 (122) 96 97.7 10/23/24 00:30 15 Room Air* 0 21 21 10/23/24 00:30 174/96 10/23/24 00:07 98.3 66 14 172/87 (115) 94 98.3 10/22/24 19:54 97.7 80 17 173/91 (118) 94 97.7 Lab Test 10/22/24 19:33 Range/Units White Blood Count 6.0 4.4-10.8 10^3/uL Red Blood Count 5.14 4.0-5.20 10^6/uL Hemoglobin 16.2 12.2-16.2 g/dL Hematocrit 46.1 H 36.0-46.0 % Mean Corpuscular Volume 89.8 80.0-100.0 fL Mean Corpuscular Hemoglobin 31.6 28.0-32.0 pg Mean Corpuscular Hemoglobin Concent 35.2 32.0-36.0 g/dL Red Cell Distribution Width 13.5 11.8-14.3 % Platelet Count 253 140-450 10^3/uL Mean Platelet Volume 7.8 6.9-10.8 fL Neutrophils (%) (Auto) 54.9 37.0-80.0 % Lymphocytes (%) (Auto) 31.8 10.0-50.0 % Monocytes (%) (Auto) 7.6 0.0-12.0 % Eosinophils (%) (Auto) 4.4 0.0-7.0 % Basophils (%) (Auto) 1.3 0.0-2.0 % Neutrophils # (Auto) 3.3 1.6-8.6 10 ^3/uL Lymphocytes # (Auto) 1.9 0.4-5.4 10 ^3/uL Monocytes # (Auto) 0.5 0-1.3 10 ^3/uL Eosinophils # (Auto) 0.3 0-0.8 10 ^3/uL Basophils # (Auto) 0.1 0-0.2 10 ^3/uL Nucleated Red Blood Cells 0.1 % Sodium Level 138 136-145 mmol/L Potassium Level 4.2 3.5-5.1 mmol/L Chloride Level 104 98-107 mmol/L Carbon Dioxide Level 25 20-31 mmol/L Anion Gap 9 5-15 Blood Urea Nitrogen 15 9-23 mg/dL Creatinine 0.72 0.550-1.02 mg/dL Glomerular Filtration Rate Calc 85 >90 mL/min BUN/Creatinine Ratio 20.8 H 10.0-20.0 Serum Glucose 98 74-106 mg/dL Calcium Level 10.3 8.7-10.4 mg/dL Magnesium Level 2.2 1.6-2.6 mg/dL Total Bilirubin 0.6 0.2-1.0 mg/dL Aspartate Amino Transferase (AST) 17 13-40 U/L Alanine Aminotransferase (ALT) 25 7-40 U/L Alkaline Phosphatase 109 46-116 U/L Troponin I High Sensitivity 5 </=34 ng/L Total Protein 7.3 5.7-8.2 g/dL Albumin 4.7 3.2-4.8 g/dL Current Medications Medications (Trade) Dose Ordered Sig/Leonel Route Start Time Stop Time Status Last Admin Clonidine HCl (Catapres Tablet) 0.2 mg ONCE ONCE PO 10/22/24 20:15 10/22/24 20:16 DC 10/23/24 00:30 Acetaminophen (Tylenol Tablet Or Capsule) 1,000 mg ONCE ONCE PO 10/23/24 00:15 10/23/24 00:16 DC 10/23/24 00:30 Sodium Chloride 1,000 ml @ 1,000 mls/hr Q1H ONCE IV 10/23/24 02:15 10/23/24 03:14 DC 10/23/24 02:17 Time of 1ST Reevaluation: 20:32 Reevaluation 1ST: Unchanged Patient Education/Counseling: Diagnosis, Treatment, Prognosis Family Education/Counseling: No Family Present Additional Information The following tests were ordered, and results were reviewed by me: TROP -x3, CBC, CMP, MAGNESIUM, EKG, I discussed treatment and results with medical personnel and: patient Comprehensive systems review obtained and negative except for what is stated in the HPI. Departure 1 Departure Time of Disposition: 04:49 Impression: Primary Impression: Uncontrolled hypertension Additional Impression: Dizziness Disposition: 01 HOME / SELF CARE / HOMELESS Condition: Stable e-Prescriptions Amlodipine Besylate (Amlodipine Besylate) 5 Mg Tab 1 TAB PO DAILY for 90 Days, #90 TAB 5 Refills Prov: SUDHA GANDHI MD 10/22/24 Discharged With: Self Critical Care Note Critical Care Time?: No Stability Stability form required: No Heart Score Heart Score: Heart Score Response (Comments) Value History Slightly Suspicious 0 EKG Normal 0 Age >65 2 Risk Factors 1 or 2 risk factors 1 Troponin Normal limit 0 Total 3 I personally scribed for SUDHA GANDHI MD ([email or web address]) on 10/22/24 at 20:15. Electronically submitted by Christal Ahmadi ([email or web address]). I personally scribed for SUDHA GANDHI MD ([email or web address]) on 10/22/24 at 20:16. Electronically submitted by Christal Ahmadi ([email or web address]). SUDHA GANDHI MD October 22, 2024 20:15
[2024-10-22] MEDS ORDERED: AMLO1TAB22 PO (23:22)
[2024-10-23 00:30] VITALS: RESP 15
[2024-10-23] MEDS: ACETAMINOPHEN 500 MG TAB or CAP PO ONE (00:30)
[2024-10-23] MEDS: cloNIDine HCL 0.1 MG TAB PO ONE (00:30)
[2024-10-23] MEDS: SODIUM CHLORIDE 0.9% 1,000 ML IV ONE (02:17)
[2024-10-23 07:52] VITALS: BP 131/61; PULSE 77; RESP 16; TEMP 97.9; O2SAT 96
== END 2024-10-23 07:50 | disposition home or self-care (01) ==
LOC: ER 19:07
DX: I10 Essential (primary) hypertension (principal); R42 Dizziness and giddiness; M19.90 Unspecified osteoarthritis, unspecified site; E78.5 Hyperlipidemia, unspecified; Z90.710 Acquired absence of both cervix and uterus; Z90.49 Acquired absence of other specified parts of digestive tract; Z79.899 Other long term (current) drug therapy; Z91.012 Allergy to eggs
CPT/HCPCS: 36415; 80053; 83735; 84484; 85025; 96360; 99285; J7030

== ENCOUNTER 2025-01-05 21:53 | Emergency (ER) | payer MEDICAID ==
[~2025-01-05] VITALS: Ht 152.4 cm; Wt 64.7 kg
[~2025-01-05 21:53] MED LIST changes: +AMLO1TAB22 PO
--- NOTE | 2025-01-05 22:22 | ED.PDOC ---
History of Present Illness HPI Comments 79 y/o obese, Indonesian-speaking F presents with c/c left flank pain, with radiation to abdomen and associated frequent urination. Patient endorses on 3x day history of symptoms following atraumatic, unprovoked, and gradual onset. No recent known sick contact or travel endorsed. Significant history of arthritis, GERD, HLD, HTN, UTI's, cholecystectomy, and hysterectomy. Patient denies having any additional urinary symptoms, vaginal bleeding, nausea, vomiting, or further associated symptoms. Time Seen by MD: 10:10 Primary Care Provider: RAMOS Reviewed Notes: Nurses Notes, Medications, Allergies Allergies: Coded Allergies: Eggs or Egg-derived Products (Verified Allergy, Unknown, 01/19/15) Home Meds Active Scripts Gabapentin (Once-Daily) (Gabapentin) 300 Mg Tab, 300 MG PO Q6HP PRN, #30 TAB Prov:SUDHA GANDHI MD 01/05/25 Sulfamethoxazole W/Trimethopri (Bactrim Ds Tablet) 1 Tab Tb, 1 TAB PO BID for 7 Days, #14 TAB Prov:SUDHA GANDHI MD 01/05/25 Amlodipine Besylate (Amlodipine Besylate) 5 Mg Tab, 1 TAB PO DAILY for 90 Days, #90 TAB 5 Refills Prov:SUDHA GANDHI MD 10/22/24 Acetaminophen (Acetaminophen) 500 Mg Tab, 500 MG PO Q4HPRN, #30 TAB 0 Refills Prov:RADHA LARA 06/09/24 Reported Medications Meloxicam (Meloxicam) 15 Mg Tab, 1 TAB PO DAILY, #30 TAB 2 Refills 02/23/18 Oxybutynin Chloride (Ditropan Xl) 15 Mg Tab, 5 MG PO BID, TAB 02/23/18 Ondansetron (Zofran Odt) 4 Mg Tab, 1 TAB SL Q6HP PRN for NAUSEA / VOMITING, #15 TAB 02/23/18 Pantoprazole Sodium Sesquihydr (Protonix) 40 Mg Tab, 40 MG PO DAILY, #30 TAB 02/23/18 Omeprazole (Gnp Omeprazole) 20 Mg Tab, 1 TAB PO DAILY, #90 TAB 1 Refill 02/23/18 Promethazine Hcl (Promethazine Hcl) 25 Mg Tab, 1 TAB PO Q6HPRN, #30 TAB 02/23/18 Losartan Potassium (Losartan Potassium) 50 Mg Tab, 50 MG PO BID, TAB 08/02/17 Information Source: Patient Mode of Arrival: Ambulatory Severity: Moderate Timing: Days Duration: Since onset Prehospital treatment: None Past Medical History PAST MEDICAL HISTORY: Arthritis, GERD, High Lipids, HTN, UTI'S Past Medical History (Other): Hypoalbuminemia Surgical History: Cholecystectomy, Hysterectomy [employer] History: No Pertinent [employer] History Family History Family History: Unknown Social History Smoker: Non-Smoker Alcohol: Denies ETOH Use Drugs: Denies Drug Use Lives In: Home All Other Systems: Reviewed and Negative (Comprehensive review of systems are negative unless stated in HPI) Physical Exam General Appearance: No Apparent Distress, Obese HEENT: Normal ENT Inspection, Pharynx Normal, TMs Normal Neck: Full Range of Motion, Non-Tender, Normal, Normal Inspection Respiratory: Chest Non-Tender, Lungs Clear, No Accessory Muscle Use, No Respiratory Distress, Normal Breath Sounds Cardiovascular: No Edema, No JVD, No Murmur, No Gallop, Normal Peripheral Pulses, Regular Rate/Rhythm Breast Exam: Deferred Gastrointestinal: No Organomegaly, Non Tender, No Pulsatile Mass, Normal Bowel Sounds, Soft Genitalia: Deferred Pelvic: Deferred Rectal: Deferred Extremities: No calf tenderness, Normal capillary refill, Normal inspection, Normal range of motion, Non-tender, No pedal edema Musculoskeletal : Location: Left Extremity Location: Other (CVA) Apperance: Normal, Tenderness Neurologic: Alert, 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 Was a procedure done?: No Differential Dx Considerations may include: nephrolithiasis, pyelonephritis, cystitis, PID, musculoskeletal pain, among others X-Ray, Labs, Meds, VS Vital Signs Date Time Temp Pulse Resp B/P (MAP) Pulse Ox O2 Delivery O2 Flow Rate FiO2 01/06/25 02:45 81 20 96 Room Air 01/06/25 02:43 98.1 81 20 129/73 (91) 97 98.1 01/06/25 00:01 98.7 76 20 125/71 (89) 96 98.7 01/05/25 22:00 97.3 86 18 138/80 (99) 96 97.3 Lab Test 01/05/25 23:10 01/05/25 22:14 Range/Units Urine Color Colorless Yellow Urine Clarity Turbid H Clear Urine pH 7.0 5.0-9.0 Urine Specific [place] 1.015 1.001-1.035 Urine Protein Negative Negative Urine Ketones Negative Negative Urine Blood Negative Negative /uL Urine Nitrite Negative Negative Urine Bilirubin Negative Negative Urine Urobilinogen Normal Negative mg/dL Urine Leukocyte Esterase Negative Negative /uL Urine RBC None seen 0 - 4 /hpf Urine Microscopic WBC < 1 0-5 /HPF Urine Squamous Epithelial Cells Few <5 /hpf Urine Amorphous Crystals Few None Seen /hpf Urine Bacteria None seen None Seen /hpf Urine Glucose Normal Normal mg/dL White Blood Count 9.2 4.4-10.8 10^3/uL Red Blood Count 4.67 4.0-5.20 10^6/uL Hemoglobin 15.1 12.2-16.2 g/dL Hematocrit 42.7 36.0-46.0 % Mean Corpuscular Volume 91.5 80.0-100.0 fL Mean Corpuscular Hemoglobin 32.3 H 28.0-32.0 pg Mean Corpuscular Hemoglobin Concent 35.3 32.0-36.0 g/dL Red Cell Distribution Width 13.7 11.8-14.3 % Platelet Count 261 140-450 10^3/uL Mean Platelet Volume 8.1 6.9-10.8 fL Neutrophils (%) (Auto) 64.4 37.0-80.0 % Lymphocytes (%) (Auto) 25.3 10.0-50.0 % Monocytes (%) (Auto) 6.1 0.0-12.0 % Eosinophils (%) (Auto) 3.5 0.0-7.0 % Basophils (%) (Auto) 0.7 0.0-2.0 % Neutrophils # (Auto) 5.9 1.6-8.6 10 ^3/uL Lymphocytes # (Auto) 2.3 0.4-5.4 10 ^3/uL Monocytes # (Auto) 0.6 0-1.3 10 ^3/uL Eosinophils # (Auto) 0.3 0-0.8 10 ^3/uL Basophils # (Auto) 0.1 0-0.2 10 ^3/uL Nucleated Red Blood Cells 0.1 % Sodium Level 141 136-145 mmol/L Potassium Level 4.3 3.5-5.1 mmol/L Chloride Level 106 98-107 mmol/L Carbon Dioxide Level 29 20-31 mmol/L Anion Gap 6 5-15 Blood Urea Nitrogen 19 9-23 mg/dL Creatinine 0.82 0.550-1.02 mg/dL Glomerular Filtration Rate Calc 73 >90 mL/min BUN/Creatinine Ratio 23.2 H 10.0-20.0 Serum Glucose 105 74-106 mg/dL Calcium Level 10.7 H 8.7-10.4 mg/dL Total Bilirubin 0.8 0.2-1.0 mg/dL Aspartate Amino Transferase (AST) 30 13-40 U/L Alanine Aminotransferase (ALT) 39 7-40 U/L Alkaline Phosphatase 94 46-116 U/L Total Protein 7.5 5.7-8.2 g/dL Albumin 5.0 H 3.2-4.8 g/dL Lipase 37 12-53 U/L Current Medications Medications (Trade) Dose Ordered Sig/Leonel Route Start Time Stop Time Status Last Admin Acetaminophen/ Hydrocodone Bitart ([place] 10/325MG Tab) 1 tab ONCE ONCE PO 01/05/25 22:15 01/05/25 22:16 DC 01/06/25 02:56 Trimethoprim/ Sulfamethoxazole (Bactrim Ds Tablet) 1 tab ONCE ONCE PO 01/05/25 23:15 01/05/25 23:16 DC 01/05/25 23:15 [place] [id number] Ph: [phone] DIAGNOSTIC IMAGING Diagnostic Imaging Report : [id number] Signed PATIENT: CHIN WEBER ACCT: [id number] UNIT: [id number] : 1945 LOC: ER ROOM / BED: / AGE / SEX: 79 / F ADM STATUS: REG ER SERVICE 10 ORDERING PHYSICIAN: SUDHA GANDHI MD PROCEDURE(s): ABPL - CT AB PEL WO CON-NO ORAL OR IV REASON: left flank pain ORDER NUMBER(s): [id number], ACCESSION NUMBER(s): [id number] Exam: CT CT AB PEL WO CON-NO ORAL OR IV History: left flank pain Comparison Study: None TECHNIQUE: Multidetector CT of the abdomen and pelvis was performed from lung bases to pubic symphysis. Imaging was performed without IV contrast. Axial, coronal, and sagittal multiplanar reformats were obtained from the axial data set by the technologist. RADIATION DOSE: CTDI vol 9.5 mGy. DLP 513.91 mGy.cm Findings: Limited evaluation of the solid organs in the absence of IV contrast. Liver: Unremarkable. Spleen: Unremarkable. Pancreas: Unremarkable. Gallbladder: Prior cholecystectomy. 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 Kidneys: Unremarkable. Pelvic Viscera: Unremarkable. Vasculature: Mild atherosclerotic aortoiliac calcifications. Retroperitoneum: Unremarkable. Bowel: No bowel obstruction. Musculoskeletal: Grade 1 anterolisthesis of L4 on L5. Soft tissues: Unremarkable Lungs: Basilar atelectasis/scarring. Impression: 1. No acute abdominopelvic abnormality identified. 2. Incidental findings as detailed. ATED BY: FABIO BRIGHT MD DICTATED DATE/TIME: 01/05/252248 SIGNED BY: FABIO BRIGHT MD SIGNED DATE/TIME: 01/05/252248 CC: Time of 1ST Reevaluation: 10:40 Reevaluation 1ST: Unchanged Patient Education/Counseling: Diagnosis, Treatment, Need For Follow Up Family Education/Counseling: No Family Present SEPSIS Sepsis Screen Physician Orders Ct Ab Pel Wo Con-No Oral Or Iv (01/05/25 22:11) Vital Signs Date Time Temp Pulse Resp B/P (MAP) Pulse Ox O2 Delivery O2 Flow Rate FiO2 01/06/25 02:45 81 20 96 Room Air 01/06/25 02:43 98.1 81 20 129/73 (91) 97 98.1 01/06/25 00:01 98.7 76 20 125/71 (89) 96 98.7 01/05/25 22:00 97.3 86 18 138/80 (99) 96 97.3 Laboratory Tests Test 01/05/25 22:14 White Blood Count 9.2 10^3/uL (4.4-10.8) Medications Medications Dose Ordered Sig/Leonel Route Start Time Stop Time Status Last Admin Dose Admin Acetaminophen/ Hydrocodone Bitart 1 tab ONCE ONCE PO 01/05/25 22:15 01/05/25 22:16 DC 01/06/25 02:56 Trimethoprim/ Sulfamethoxazole 1 tab ONCE ONCE PO 01/05/25 23:15 01/05/25 23:16 DC 01/05/25 23:15 Departure 1 Departure Time of Disposition: 00:40 Impression: Primary Impression: Left flank pain Disposition: HOME / SELF CARE / HOMELESS Condition: Stable e-Prescriptions Gabapentin (Once-Daily) (Gabapentin) 300 Mg Tab 300 MG PO Q6HP PRN, #30 TAB Prov: SUDHA GANDHI MD 01/05/25 Sulfamethoxazole W/Trimethopri (Bactrim Ds Tablet) 1 Tab Tb 1 TAB PO BID for 7 Days, #14 TAB Prov: SUDHA GANDHI MD 01/05/25 Discharged With: Self Critical Care Note Critical Care Time?: No Stability Stability form required: No Heart Score Heart Score: Heart Score Response (Comments) Value History N/A 0 EKG N/A 0 Age N/A 0 Risk Factors N/A 0 Troponin N/A 0 Total 0 I personally scribed for SUDHA GANDHI MD ([email or web address]) on 01/05/25 at 22:22. Electronically submitted by Pedro Campos ([email or web address]). I personally scribed for SUDHA GANDHI MD ([email or web address]) on 01/05/25 at 23:27. Electronically submitted by Pedro Campos ([email or web address]). SUDHA GANDHI MD Jan 05, 2025 22:22
[2025-01-05 22:33] LABS: Hematocrit 42.7 % (36.0-46.0); Hemoglobin 15.1 g/dL (12.2-16.2); Mean Corpuscular Hemoglobin 32.3 pg (28.0-32.0); Mean Corpuscular Volume 91.5 fL (80.0-100.0); Nucleated Red Blood Cells % 0.1 %
[2025-01-05 22:52] LABS: Alanine Aminotransferase 39 U/L (7-40); Alkaline Phosphatase 94 U/L (46-116); Anion Gap 6 (5-15); BUN/Creatinine Ratio 23.2 (10.0-20.0); Blood Urea Nitrogen 19 mg/dL (9-23); Carbon Dioxide 29 mmol/L (20-31); Chloride 106 mmol/L (98-107); Glucose 105 mg/dL (74-106); Lipase 37 U/L (12-53); Potassium 4.3 mmol/L (3.5-5.1); Sodium 141 mmol/L (136-145); Total Protein 7.5 g/dL (5.7-8.2)
--- NOTE | 2025-01-05 22:52 | DVH ---
Exam: CT CT AB PEL WO CON-NO ORAL OR IV History: left flank pain Comparison Study: None TECHNIQUE: Multidetector CT of the abdomen and pelvis was performed from lung bases to pubic symphysi s. Imaging was performed without IV contrast. Axial, coronal, and sagittal multiplanar reformats were obtained from the axial data set by the technologist. RADIATION DOSE: CTDI vol 9.5 mGy. DLP 513.91 mGy.cm Findings: Limited evaluation of the solid organs in the absence of IV contrast. Liver: Unremarkable. Spleen: Unremarkable. Pancreas: Unremarkable. Gallbladder: Prior cholecystectomy. 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 Kidneys: Unremarkable. Pelvic Viscera: Unremarkable. Vasculature: Mild atherosclerotic aortoiliac calcifications. Retroperitoneum: Unremarkable. Bowel: No bowel obstruction. Musculoskeletal: Grade 1 anterolisthesis of L4 on L5. Soft tissues: Unremarkable Lungs: Basilar atelectasis/scarring. Impression: 1. No acute abdominopelvic abnormality identified. 2. Incidental findings as detailed.
[2025-01-05 22:53] LABS: Bilirubin, Total 0.8 mg/dL (0.2-1.0)
[2025-01-05 23:01] LABS: Albumin 5.0 g/dL (3.2-4.8); Calcium 10.7 mg/dL (8.7-10.4)
[2025-01-05] MEDS: SULFAMETHOX W/TRIMETH(800/160MG) DS TAB PO ONE (23:15)
[2025-01-05] MEDS ORDERED: BACDST PO (23:16)
[2025-01-05] MEDS ORDERED: GABA300T4 PO (23:16)
[2025-01-05 23:28] LABS: Urine Amorphous Crystal FEW /hpf (None Seen); Urine Protein, UAD Negative (Negative)
[2025-01-06 02:43] VITALS: BP 129/73; TEMP 98.1
[2025-01-06 02:45] VITALS: PULSE 81; RESP 20; O2SAT 96
[2025-01-06] MEDS: HYDROcodone-ACET 10/325MG TAB PO ONE (02:56)
[2025-01-06] MEDS ORDERED: ROSU10TA64 PO (14:31)
[2025-01-06] MEDS ORDERED: LOSA-535 PO (14:31)
== END 2025-01-06 04:19 | disposition home or self-care (01) ==
LOC: ER 21:53
DX: R10.9 Unspecified abdominal pain (principal); I10 Essential (primary) hypertension; E78.5 Hyperlipidemia, unspecified; M19.90 Unspecified osteoarthritis, unspecified site; Z79.899 Other long term (current) drug therapy; Z87.440 Personal history of urinary (tract) infections; Z90.49 Acquired absence of other specified parts of digestive tract; Z90.710 Acquired absence of both cervix and uterus
CPT/HCPCS: 36415; 74176; 80053; 81001; 83690; 85025

== ENCOUNTER 2025-01-06 10:43 | Inpatient (IN) | payer MEDICAID ==
[~2025-01-06] VITALS: Ht 165.1 cm; Wt 68.5 kg
[~2025-01-06 10:43] MED LIST changes: +BACDST PO; +GABA300T4 PO
--- NOTE | 2025-01-06 11:14 | ED.PDOC ---
GI ASSESSMENT HPI Comments 79 year-old obese, Icelandic-speaking Female presents with chief complaint of Nausea with associated left flank pain, with radiation to abdomen as of 0300 this morning. Significant history of arthritis, GERD, HLD, HTN, UTI's, cholecystectomy, and hysterectomy. Patient was seen by Dr. Gandhi last night, 01/05/25, for Left Flank Pain and was prescribed Gabapentin and Bactrim. Patient came to the ED today upon non-alleviating or worsening symptoms. No recent known sick contact or travel endorsed. Patient denies having any additional urinary symptoms, vaginal bleeding, nausea, vomiting, or further associated symptoms. Chief Complaint: Nausea/Vomiting Time Seen by MD: 11:07 Primary Care Provider: RAMOS Reviewed Notes: Nurses Notes, Medications, Allergies Allergies: Coded Allergies: Benzonatate (Verified Allergy, Unknown, 01/06/25) Egg-derived Products (Verified Allergy, Unknown, 01/19/15) Home Meds Active Scripts Gabapentin (Once-Daily) (Gabapentin) 300 Mg Tab, 300 MG PO Q6HP PRN, #30 TAB Prov:SUDHA GANDHI MD 01/05/25 Amlodipine Besylate (Amlodipine Besylate) 5 Mg Tab, 1 TAB PO DAILY for 90 Days, #90 TAB 5 Refills Prov:SUDHA GANDHI MD 10/22/24 Acetaminophen (Acetaminophen) 500 Mg Tab, 500 MG PO Q4HPRN, #30 TAB 0 Refills Prov:RADHA LARA 06/09/24 Reported Medications Rosuvastatin Calcium (Rosuvastatin Calcium) 10 Mg Tab, 1 TAB PO DAILY 01/06/25 Losartan Potassium (Losartan Potassium) 100 Mg Tab, 1 TAB PO DAILY 01/06/25 Meloxicam (Meloxicam) 15 Mg Tab, 1 TAB PO DAILY, #30 TAB 2 Refills 02/23/18 Oxybutynin Chloride (Ditropan Xl) 15 Mg Tab, 5 MG PO BID, TAB 02/23/18 Ondansetron (Zofran Odt) 4 Mg Tab, 1 TAB SL Q6HP PRN for NAUSEA / VOMITING, #15 TAB 02/23/18 Pantoprazole Sodium Sesquihydr (Protonix) 40 Mg Tab, 40 MG PO DAILY, #30 TAB 02/23/18 Omeprazole (Gnp Omeprazole) 20 Mg Tab, 1 TAB PO DAILY, #90 TAB 1 Refill 02/23/18 Promethazine Hcl (Promethazine Hcl) 25 Mg Tab, 1 TAB PO Q6HPRN, #30 TAB 02/23/18 Discontinued Reported Medications Losartan Potassium (Losartan Potassium) 50 Mg Tab, 50 MG PO BID, TAB 08/02/17 Discontinued Scripts Sulfamethoxazole W/Trimethopri (Bactrim Ds Tablet) 1 Tab Tb, 1 TAB PO BID for 7 Days, #14 TAB Prov:SUDHA GANDHI MD 01/05/25 Information Source: Patient Mode of Arrival: Ambulatory Timing: Hours Duration: Since onset Severity: Moderate Pain Location: Other (Left Flank Pain / Left Abdominal Pain ) Associated sign and symptoms: Nausea, Abdominal Pain Past Medical History PAST MEDICAL HISTORY: Arthritis, GERD, High Lipids, HTN, UTI'S Surgical History: Cholecystectomy, Hysterectomy [employer] History: No Pertinent [employer] History Family History Family History: Unknown Social History Smoker: Non-Smoker Alcohol: Denies ETOH Use Drugs: Denies Drug Use Lives In: Home Constitutional: denies: chills, diaphoresis, fatigue, fever, malaise, sweats, weakness, others EENTM: denies: blurred vision, double vision, ear bleeding, ear discharge, ear drainage, ear pain, ear ringing, eye pain, eye redness, hearing loss, mouth pain, mouth swelling, nasal discharge, nose bleeding, nose congestion, nose pain, photophobia, tearing, throat pain, throat swelling, voice changes, others Respiratory: denies: cough, hemoptysis, orthopnea, SOB at rest, shortness of breath, SOB with excertion, stridor, wheezing, others Cardiovascular: denies: chest pain, dizzy spells, diaphoresis, Dyspnea on exertion, edema, irregular heart beat, left arm pain, lightheadedness, palpitations, PND, syncope, others Gastrointestinal: reports: abdominal pain, nausea; denies: abdomen distended, blood streaked bowels, constipated, diarrhea, dysphagia, difficulty swallowing, hematemesis, melena, poor appetite, poor fluid intake, rectal bleeding, rectal pain, vomiting, others Genitourinary: reports: flank pain; denies: abnormal vagina bleeding, burning, dyspareunia, dysuria, frequency, hematuria, incontinence, pain, , vagina discharge, urgency, others Neurological: denies: dizziness, fainting, headache, left sided numbness, left sided weakness, numbness, paresthesia, pre-existing deficit, right sided numbness, right sided weakness, seizure, speech problems, tingling, tremors, weakness, others Musculoskeletal: denies: back pain, gout, joint pain, joint swelling, muscle pain, muscle stiffness, neck pain, others Integumetry: denies: bruises, change in color, change in hair/nails, dryness, laceration, lesions, lumps, rash, wounds, others Allergic/Immunocompromised: denies: Difficulty Healing, Frequent Infections, Hives, Itching, others Hematologic/Lymphatic: denies: anemia, blood clots, easy bleeding, easy bruising, swollen glands, others Endocrine: denies: excessive hunger, excessive sweating, excessive thirst, excessive urination, flushing, intolerance to cold, intolerance to heat, unexplained weight gain, unexplained weight loss, others Psychiatric: denies: anxiety, bipolar disorder, depression, hopeless, panic disorder, schizophrenia, sleepless, suicidal, others All Other Systems: Reviewed and Negative Physical Exam General Appearance: Moderate Distress, Obese HEENT: Normal ENT Inspection, Pharynx Normal, TMs Normal Neck: Full Range of Motion, Non-Tender, Normal, Normal Inspection Respiratory: Chest Non-Tender, Lungs Clear, No Accessory Muscle Use, No Respi ratory Distress, Normal Breath Sounds Cardiovascular: No Edema, No JVD, No Murmur, No Gallop, Normal Peripheral Pulses, Regular Rate/Rhythm Breast Exam: Deferred Gastrointestinal: LLQ, LUQ, No Organomegaly, No Pulsatile Mass, Normal Bowel Sounds, Soft, Tenderness Genitalia: Deferred Pelvic: Deferred Rectal: Deferred Extremities: No calf tenderness, Normal capillary refill, Normal inspection, Normal range of motion, Non-tender, No pedal edema Musculoskeletal : Apperance: Normal Neurologic: Alert, 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 Was a procedure done?: No GI differential Dx Differential Diagnosis: Gastroenteritis, Inflammatory BD, UTI, Dehydration, Electrolyte Imbalance, Bacterial, Parasitic, Viral X-Ray, Labs, Meds, VS Vital Signs Date Time Temp Pulse Resp B/P (MAP) Pulse Ox O2 Delivery O2 Flow Rate FiO2 01/06/25 13:28 80 20 98 Room Air 01/06/25 13:28 98.0 80 20 153/86 (108) 98 98.0 01/06/25 12:52 98.1 84 17 124/97 (106) 97 98.1 01/06/25 12:52 84 17 97 Room Air 01/06/25 11:02 98.2 94 17 141/83 98 98.2 Lab Test 01/06/25 11:24 01/06/25 11:08 Range/Units White Blood Count 10.0 4.4-10.8 10^3/uL Red Blood Count 4.75 4.0-5.20 10^6/uL Hemoglobin 15.4 12.2-16.2 g/dL Hematocrit 43.6 36.0-46.0 % Mean Corpuscular Volume 91.9 80.0-100.0 fL Mean Corpuscular Hemoglobin 32.5 H 28.0-32.0 pg Mean Corpuscular Hemoglobin Concent 35.4 32.0-36.0 g/dL Red Cell Distribution Width 13.7 11.8-14.3 % Platelet Count 263 140-450 10^3/uL Mean Platelet Volume 8.0 6.9-10.8 fL Neutrophils (%) (Auto) 78.2 37.0-80.0 % Lymphocytes (%) (Auto) 16.2 10.0-50.0 % Monocytes (%) (Auto) 4.3 0.0-12.0 % Eosinophils (%) (Auto) 0.9 0.0-7.0 % Basophils (%) (Auto) 0.4 0.0-2.0 % Neutrophils # (Auto) 7.8 1.6-8.6 10 ^3/uL Lymphocytes # (Auto) 1.6 0.4-5.4 10 ^3/uL Monocytes # (Auto) 0.4 0-1.3 10 ^3/uL Eosinophils # (Auto) 0.1 0-0.8 10 ^3/uL Basophils # (Auto) 0 0-0.2 10 ^3/uL Nucleated Red Blood Cells 0.0 % Sodium Level 141 136-145 mmol/L Potassium Level 4.2 3.5-5.1 mmol/L Chloride Level 106 98-107 mmol/L Carbon Dioxide Level 27 20-31 mmol/L Anion Gap 8 5-15 Blood Urea Nitrogen 19 9-23 mg/dL Creatinine 0.90 0.550-1.02 mg/dL Glomerular Filtration Rate Calc 65 >90 mL/min BUN/Creatinine Ratio 21.1 H 10.0-20.0 Serum Glucose 168 H 74-106 mg/dL Calcium Level 10.5 H 8.7-10.4 mg/dL Total Bilirubin 0.9 0.2-1.0 mg/dL Aspartate Amino Transferase (AST) 45 H 13-40 U/L Alanine Aminotransferase (ALT) 52 H 7-40 U/L Alkaline Phosphatase 90 46-116 U/L Total Protein 7.7 5.7-8.2 g/dL Albumin 5.1 H 3.2-4.8 g/dL Lipase 36 12-53 U/L Urine Color Yellow Yellow Urine Clarity Clear Clear Urine pH 6.0 5.0-9.0 Urine Specific [place] 1.023 1.001-1.035 Urine Protein 1+ H Negative Urine Ketones Negative Negative Urine Blood Negative Negative /uL Urine Nitrite Negative Negative Urine Bilirubin Negative Negative Urine Urobilinogen Normal Negative mg/dL Urine Leukocyte Esterase Negative Negative /uL Urine RBC 1 0 - 4 /hpf Urine Microscopic WBC 2 0-5 /HPF Urine Squamous Epithelial Cells Few <5 /hpf Urine Bacteria None seen None Seen /hpf Urine Mucus Few None Seen Urine Glucose Normal Normal mg/dL Current Medications Medications (Trade) Dose Ordered Sig/Leonel Route Start Time Stop Time Status Last Admin Ondansetron HCl (Zofran) 4 mg ONCE ONCE IV 01/06/25 11:15 01/06/25 11:16 DC 01/06/25 13:16 Sodium Chloride 500 ml @ 500 mls/hr Q1H ONCE IVB 01/06/25 11:15 01/06/25 12:14 DC 01/06/25 13:18 IMPRESSION: No acute intraabdominal abnormality. No kidney stones seen. The patient was given Zofran 4 mg IV push for the nausea The patient was given a bolus of normal saline at 500 cc The patient's urine test is negative The patient's CBC and chemistry panel are within normal limits The patient is being admitted at this time Images Reviewed?: Images reviewed and evaluated by me Time of 1ST Reevaluation: 11:37 Reevaluation 1ST: Unchanged Patient Education/Counseling: Diagnosis, Treatment, Prognosis Family Education/Counseling: No Family Present SEPSIS Sepsis Screen Date sepsis recognized/suspect: Jan 06, 2025 Time Sepsis recognized/suspect: 1051 Recent Procedure: No On Antibiotic Therapy: No Respiratory Rate >20: No Heart Rate >90: No Temp<36 C (96.8 F) or >38.3 C: No SBP <90 or MAP <65 mmHG: No New Acute Mental Status Change: No Is the patient on CPAP, BIPAP,: No Physician Orders Ct Ab Pel Wo Con-No Oral Or Iv (01/06/25 11:08) Heplock Iv (01/06/25 11:08) Table Hand (01/06/25 11:08) Blood Pressure (01/06/25 11:08) Pulse Oximetry (01/06/25 11:08) Electrocardigram (01/06/25 11:08) Admit (01/06/25 14:27) Code Status (01/06/25 14:27) Hydrocodone-Acet 5/325mg Tab ([place] 32 (01/06/25 14:30) Ondansetron Hcl (Zofran) (01/06/25 14:30) Docusate Sodium Capsule (Colace Capsule) (01/06/25 14:30) Complete Blood Count (01/07/25 04:00) Comprehensive Metabolic Panel (01/07/25 04:00) Condition: Serious (01/06/25 14:27) Acetaminophen Tablet (Tylenol Tablet) (01/06/25 14:30) (Nf) Losartan Potassium (01/07/25 10:00) (Nf) Rosuvastatin Calcium (01/07/25 10:00) Vital Signs Date Time Temp Pulse Resp B/P (MAP) Pulse Ox O2 Delivery O2 Flow Rate FiO2 01/06/25 13:28 80 20 98 Room Air 01/06/25 13:28 98.0 80 20 153/86 (108) 98 98.0 01/06/25 12:52 98.1 84 17 124/97 (106) 97 98.1 01/06/25 12:52 84 17 97 Room Air 01/06/25 11:02 98.2 94 17 141/83 98 98.2 Laboratory Tests Test 01/06/25 11:24 White Blood Count 10.0 10^3/uL (4.4-10.8) Medications Medications Dose Ordered Sig/Leonel Route Start Time Stop Time Status Last Admin Dose Admin Ondansetron HCl 4 mg ONCE ONCE IV 01/06/25 11:15 01/06/25 11:16 DC 01/06/25 13:16 Sodium Chloride 500 ml @ 500 mls/hr Q1H ONCE IVB 01/06/25 11:15 01/06/25 12:14 DC 01/06/25 13:18 Departure 1 Departure Time of Disposition: 14:37 Impression: Primary Impression: Intractable abdominal pain Disposition: ADMITTED INPATIENT Admit to: Med Surg Condition: Fair Critical Care Note Critical Care Time?: No Stability Stability form required: Yes Unstable for transfer: ED Physician Assesment (Clinical assesment) Heart Score Heart Score: Heart Score Response (Comments) Value History N/A 0 EKG N/A 0 Age N/A 0 Risk Factors N/A 0 Troponin N/A 0 Total 0 I personally scribed for HEIDI RÍOS MD ([email or web address]) on 01/06/25 at 11:14. Electronically submitted by Lotus Stein ([email or web address]). I personally scribed for HEIDI RÍOS MD ([email or web address]) on 01/06/25 at 13:41. Electronically submitted by Lotus Stein ([email or web address]). HEIDI RÍOS MD Jan 06, 2025 11:14
[2025-01-06 11:55] LABS: Hematocrit 43.6 % (36.0-46.0); Hemoglobin 15.4 g/dL (12.2-16.2); Mean Corpuscular Hemoglobin 32.5 pg (28.0-32.0); Mean Corpuscular Volume 91.9 fL (80.0-100.0); Nucleated Red Blood Cells % 0.0 %
[2025-01-06 12:08] LABS: Alanine Aminotransferase 52 U/L (7-40); Albumin 5.1 g/dL (3.2-4.8); Alkaline Phosphatase 90 U/L (46-116); Anion Gap 8 (5-15); BUN/Creatinine Ratio 21.1 (10.0-20.0); Bilirubin, Total 0.9 mg/dL (0.2-1.0); Blood Urea Nitrogen 19 mg/dL (9-23); Calcium 10.5 mg/dL (8.7-10.4); Carbon Dioxide 27 mmol/L (20-31); Chloride 106 mmol/L (98-107); Glucose 168 mg/dL (74-106); Lipase 36 U/L (12-53); Potassium 4.2 mmol/L (3.5-5.1); Sodium 141 mmol/L (136-145); Total Protein 7.7 g/dL (5.7-8.2)
--- NOTE | 2025-01-06 12:13 | DVH ---
CT CT AB PEL WO CON-NO ORAL OR IV INDICATION: left flank pain EXAM DATE: 01/06/2025 11:28 AM COMPARISON: CT CT AB PEL WO CON-NO ORAL OR IV on DOS: 01/05/25 RADIATION DOSE: CTDIvol: 14.43 mGy, DLP: 741.24 mGy*cm PROCEDURE: Helical CT images were obtained of the abdomen and pelvis without IV contrast Sagittal and coronal reconstructions are provided. ORAL CONTRAST: None. ADDITIONAL IMAGES / REFORMATS: None All C T scans at this medical facility are performed using dose modulation techniques as appropriate to a p erformed exam including the following: Automated exposure control was utilized; adjustment of the MA and/or KV according to patient size; and use of iterative reconstruction technique. FINDINGS: LUNG BASE: Bibasilar ground glass opacity. LIVER: Normal. GALLBLADDER AND BILIARY TREE: Desire clips are seen. No intra- or extrahepatic biliary ductal dilation . PANCREAS: Normal. SPLEEN: Normal. BOWEL: Normal. Appendix not well visualized. ADRENALS: 2.1 cm left myelolipoma. KIDNEYS AND URETER: Normal. BLADDER: Normal. REPRODUCTIVE ORGANS: Normal. LYMPH NODES:No lymphadenopathy. PERITONEUM: No ascites or free air. No other fluid collection. VESSELS: Scattered atherosclerotic calcifications are noted. RETROPERITONEUM: Normal. ABDOMINAL WALL: Small fat containing left inguinal hernia. BONES: Scattered osseous degenerative changes are noted. IMPRESSION: No acute intraabdominal abnormality. No kidney stones seen.
[2025-01-06 12:32] LABS: Urine Protein, UAD 1+ (Negative)
[2025-01-06] MEDS: ONDANSETRON HCL 4 MG/2 ML VIAL IV ONE (13:16)
[2025-01-06] MEDS: MORPHINE SULFATE 4 MG/ML SYR/VIAL IV ONE (13:17)
[2025-01-06] MEDS: SODIUM CHLORIDE 0.9% 500 ML IVB ONE (13:18)
[2025-01-06] MEDS ORDERED: ONDANSETRON HCL 4 MG/2 ML VIAL IV PRN (14:30)
[2025-01-06] MEDS ORDERED: HYDROcodone-ACET 5/325MG TAB PO PRN (14:30)
[2025-01-06] MEDS ORDERED: LOSA-535 PO (14:31)
[2025-01-06] MEDS ORDERED: ROSU10TA64 PO (14:31)
--- NOTE | 2025-01-06 14:36 | DVHHP2 ---
History of Present Illness Reason for Visit: Nausea and vomiting History of Present Illness Dominique Holm is a 79-year-old female with past medical history of GERD, hyperlipidemia, hypertension, UTS's, who came to the hospital for nausea and vomiting. Patient was seen here last night due to let flank pain and nausea. She was given medication, was feeling better, and went home. This morning she woke up about 0900 feeling worse and she began vomiting. She states she has not been able to stop vomiting until the ER medicated her. Cardiovascular: HTN, hyperipidemia Past Surgical History: Cholecystectomy, Other (bladder surgery) Smoke: No ALCOHOL: none Drugs: None Lives: with Family Domestic Violence: Neg Review of Systems Constitutional: No: Fever, Chills, Sweats, Weakness, Malaise, Other Eyes: No: Pain, Vision change, Conjunctivae inflammation, Eyelid inflammation, Other, Redness ENT: No: Ear pain, Ear discharge, Nose pain, Nose discharge, Nose congestion, Mouth pain, Mouth swelling, Throat pain, Throat swelling, Other Respiratory: No: Cough, Dry, Shortness of breath, SOB with excertion, Wheezing, Hemoptysis, Pleuritic Pain, Sputum, Wheezing, Other Cardiovascular: No: Chest Pain, Palpitations, Orthopnea, Paroxysmal Noc. Dyspnea, Edema, Lt Headedness, Other Gastrointestinal: Nausea, Vomiting, Abdominal Pain; No: Diarrhea, Constipation, Melena, Hematochezia, Other Genitourinary: No Dysuria, No Frequency, No Incontinence, No Hematuria, No Retention, No Other Musculoskeletal: No: other, neck pain, shoulder pain, arm pain, back pain, hand pain, leg pain, foot pain Skin: No: Rash, Lesions, Jaundice, Bruising, Other Neurological: No: Weakness, Numbness, Incoordination, Change in speech, Confusion, Seizures, Other Allergies: Coded Allergies: Benzonatate (Verified Allergy, Unknown, 01/06/25) Egg-derived Products (Verified Allergy, Unknown, 01/19/15) Exam Vital Signs Vital Signs Date Time Temp Pulse Resp B/P (MAP) Pulse Ox O2 Delivery O2 Flow Rate FiO2 01/06/25 13:28 80 20 98 Room Air 01/06/25 13:28 98.0 153/86 (108) 98.0 General Appearance: Alert, Oriented X3, Cooperative HEENT: Atraumatic, PERRLA Respiratory: Clear to auscultation, Normal air movement Cardiovascular: Regular rate, Normal S1, Normal S2 Abdominal: Normal bowel sounds, Soft Extremities: No clubbing, No cyanosis, No edema, Normal pulses, No tend erness/swelling Skin: No rashes, No breakdown, No significant lesion Neuro: Normal gait, Normal speech, Strength at 5/5 X4 ext, Normal tone Psych/Mental Status: Mental status NL, Mood NL Labs/Xrays Labs Test 01/06/25 11:24 01/06/25 11:08 Range/Units White Blood Count 10.0 4.4-10.8 10^3/uL Red Blood Count 4.75 4.0-5.20 10^6/uL Hemoglobin 15.4 12.2-16.2 g/dL Hematocrit 43.6 36.0-46.0 % Mean Corpuscular Volume 91.9 80.0-100.0 fL Mean Corpuscular Hemoglobin 32.5 H 28.0-32.0 pg Mean Corpuscular Hemoglobin Concent 35.4 32.0-36.0 g/dL Red Cell Distribution Width 13.7 11.8-14.3 % Platelet Count 263 140-450 10^3/uL Mean Platelet Volume 8.0 6.9-10.8 fL Neutrophils (%) (Auto) 78.2 37.0-80.0 % Lymphocytes (%) (Auto) 16.2 10.0-50.0 % Monocytes (%) (Auto) 4.3 0.0-12.0 % Eosinophils (%) (Auto) 0.9 0.0-7.0 % Basophils (%) (Auto) 0.4 0.0-2.0 % Neutrophils # (Auto) 7.8 1.6-8.6 10 ^3/uL Lymphocytes # (Auto) 1.6 0.4-5.4 10 ^3/uL Monocytes # (Auto) 0.4 0-1.3 10 ^3/uL Eosinophils # (Auto) 0.1 0-0.8 10 ^3/uL Basophils # (Auto) 0 0-0.2 10 ^3/uL Nucleated Red Blood Cells 0.0 % Sodium Level 141 136-145 mmol/L Potassium Level 4.2 3.5-5.1 mmol/L Chloride Level 106 98-107 mmol/L Carbon Dioxide Level 27 20-31 mmol/L Anion Gap 8 5-15 Blood Urea Nitrogen 19 9-23 mg/dL Creatinine 0.90 0.550-1.02 mg/dL Glomerular Filtration Rate Calc 65 >90 mL/min BUN/Creatinine Ratio 21.1 H 10.0-20.0 Serum Glucose 168 H 74-106 mg/dL Calcium Level 10.5 H 8.7-10.4 mg/dL Total Bilirubin 0.9 0.2-1.0 mg/dL Aspartate Amino Transferase (AST) 45 H 13-40 U/L Alanine Aminotransferase (ALT) 52 H 7-40 U/L Alkaline Phosphatase 90 46-116 U/L Total Protein 7.7 5.7-8.2 g/dL Albumin 5.1 H 3.2-4.8 g/dL Lipase 36 12-53 U/L Urine Color Yellow Yellow Urine Clarity Clear Clear Urine pH 6.0 5.0-9.0 Urine Specific [place] 1.023 1.001-1.035 Urine Protein 1+ H Negative Urine Ketones Negative Negative Urine Blood Negative Negative /uL Urine Nitrite Negative Negative Urine Bilirubin Negative Negative Urine Urobilinogen Normal Negative mg/dL Urine Leukocyte Esterase Negative Negative /uL Urine RBC 1 0 - 4 /hpf Urine Microscopic WBC 2 0-5 /HPF Urine Squamous Epithelial Cells Few <5 /hpf Urine Bacteria None seen None Seen /hpf Urine Mucus Few None Seen Urine Glucose Normal Normal mg/dL CT CT AB PEL WO CON-NO ORAL OR IV FINDINGS: LUNG BASE: Bibasilar ground glass opacity. LIVER: Normal. GALLBLADDER AND BILIARY TREE: Desire clips are seen. No intra- or extrahepatic biliary ductal dilation. PANCREAS: Normal. SPLEEN: Normal. BOWEL: Normal. Appendix not well visualized. ADRENALS: 2.1 cm left myelolipoma. KIDNEYS AND URETER: Normal. BLADDER: Normal. REPRODUCTIVE ORGANS: Normal. LYMPH NODES:No lymphadenopathy. PERITONEUM: No ascites or free air. No other fluid collection. VESSELS: Scattered atherosclerotic calcifications are noted. RETROPERITONEUM: Normal. ABDOMINAL WALL: Small fat containing left inguinal hernia. BONES: Scattered osseous degenerative changes are noted. IMPRESSION: No acute intraabdominal abnormality. No kidney stones seen. SEPSIS Sepsis Screen Date sepsis recognized/suspect: Jan 06, 2025 Time Sepsis recognized/suspect: 1052 Recent Procedure: No On Antibiotic Therapy: No Respiratory Rate >20: No Heart Rate >90: No Temp<36 C (96.8 F) or >38.3 C: No SBP <90 or MAP <65 mmHG: No New Acute Mental Status Change: No Is the patient on CPAP, BIPAP,: No Physician Orders Ct Ab Pel Wo Con-No Oral Or Iv (01/06/25 11:08) Heplock Iv (01/06/25 11:08) Cytologist (01/06/25 11:08) Blood Pressure (01/06/25 11:08) Pulse Oximetry (01/06/25 11:08) Electrocardigram (01/06/25 11:08) Admit (01/06/25 14:27) Code Status (01/06/25 14:27) Hydrocodone-Acet 5/325mg Tab ([place] (01/06/25 14:30) Ondansetron Hcl (Zofran) (01/06/25 14:30) Docusate Sodium Capsule (Colace Capsule) (01/06/25 14:30) Complete Blood Count (01/07/25 04:00) Comprehensive Metabolic Panel (01/07/25 04:00) Condition: Serious (01/06/25 14:27) Acetaminophen Tablet (Tylenol Tablet) (01/06/25 14:30) (Nf) Losartan Potassium (01/07/25 10:00) (Nf) Rosuvastatin Calcium (01/07/25 10:00) Vital Signs Date Time Temp Pulse Resp B/P (MAP) Pulse Ox O2 Delivery O2 Flow Rate FiO2 01/06/25 13:28 80 20 98 Room Air 01/06/25 13:28 98.0 80 20 153/86 (108) 98 98.0 01/06/25 12:52 98.1 84 17 124/97 (106) 97 98.1 01/06/25 12:52 84 17 97 Room Air 01/06/25 11:02 98.2 94 17 141/83 98 98.2 Laboratory Tests Test 01/06/25 11:24 White Blood Count 10.0 10^3/uL (4.4-10.8) Medications Medications Dose Ordered Sig/Leonel Route Start Time Stop Time Status Last Admin Dose Admin Ondansetron HCl 4 mg ONCE ONCE IV 01/06/25 11:15 01/06/25 11:16 DC 01/06/25 13:16 4 MG Sodium Chloride 500 ml @ 500 mls/hr Q1H ONCE IVB 01/06/25 11:15 01/06/25 12:14 DC 01/06/25 13:18 500 MLS/HR Assessment/Plan Assessment/Plan Assessment: Left flank pain, Intractable nausea and vomiting, Hyperglycemia, Transaminitis, Hyperlipidemia, Plan: Admit to Med-Surg, IV antiemetics, Clear liquid diet, advance as tolerated, A1c, Liver ultrasound, Home medications reconciled, Plan discussed with: Patient My Orders Orders - FANNY GARCIA Procedure Category Date Status Time Admit ADMIT 01/06/25 Transmitted 14:27 Code Status CODE 01/06/25 Transmitted 14:27 Hydrocodone-Acet PHA 01/06/25 Transmitted 5/325mg Tab ([place]ia 14:30 Ondansetron Hcl PHA 01/06/25 Transmitted (Zofran) 14:30 Docusate Sodium PHA 01/06/25 Transmitted Capsule (Colace 14:30 Complete Blood Count LAB 01/07/25 Verified 04:00 Comprehensive LAB 01/07/25 Verified Metabolic Panel 04:00 Condition: Serious MIGUEL 01/06/25 Transmitted 14:27 Acetaminophen Tablet PHA 01/06/25 Transmitted (Tylenol Tablet) 14:30 (Nf) Losartan PHA 01/07/25 Verified Potassium 10:00 (Nf) Rosuvastatin PHA 01/07/25 Verified Calcium 10:00 Date of Service: Jan 06, 2025 Billing Provider: FANNY GARCIA Common Visit Codes: 65732-[id number] INP/OBS CARE (MOD) FANNY GARCIA Jan 06, 2025 14:36
[2025-01-06] MEDS ORDERED: METOCLOPRAMIDE HCL 5MG/ml INJ 2ml VIAL IV PRN (17:30)
--- NOTE | 2025-01-06 18:05 | DVH ---
Technique: Real-time ultrasound imaging of the abdomen was performed with grayscale and color Doppler . Indication: elevated liver enzymes Comparison: None Findings: Liver measures 13.3 cm. It is increased in echogenicity and echotexture without focal mass. Portal v ein is normal in caliber and demonstrates normal hepatopetal flow. Gallbladder is removed. The common bile duct measures 7 mm. No intrahepatic biliary ductal dilatation. The right kidney measures 9.3 cm. The left kidney measures cm. No hydronephrosis or sonographic evid ence of nephrolithiasis. The visualized portion of the pancreas is unremarkable. Spleen measures cm. The visualized portion of the IVC is unremarkable. Impression: Echogenic liver which can be seen with hepatic steatosis, cirrhosis.
[2025-01-06 20:30] VITALS: BP 133/63; PULSE 67; RESP 18; RESP 67; TEMP 97.5; O2SAT 96
[2025-01-06] MEDS ORDERED: INFLUENZA TRIVALENT 2024-2025 0.5 ML INJ IM ONE (21:00)
[2025-01-06] MEDS: ATORVASTATIN 20 MG TAB PO SCH (22:00)
[2025-01-06 23:20] VITALS: BP 137/91; PULSE 76; RESP 18; TEMP 98.6; O2SAT 97
[2025-01-07] VITALS (9 sets, daily range): BP systolic 110–144; BP diastolic 59–84; PULSE 55–77; RESP 16–18; TEMP 97.5–97.9; O2SAT 95–99
[2025-01-07] MEDS: diphenhdrAMINE HCL 25 MG CAP PO ONE (00:36)
[2025-01-07] MEDS: FAMOTIDINE (10MG/ML) 2ML VL IV ONE (00:37)
[2025-01-07 05:34] LABS: Hematocrit 39.2 % (36.0-46.0); Hemoglobin 14.2 g/dL (12.2-16.2); Mean Corpuscular Hemoglobin 32.9 pg (28.0-32.0); Mean Corpuscular Volume 91.0 fL (80.0-100.0); Nucleated Red Blood Cells % 0.0 %
[2025-01-07 05:55] LABS: Alanine Aminotransferase 39 U/L (7-40); Albumin 4.4 g/dL (3.2-4.8); Alkaline Phosphatase 71 U/L (46-116); Anion Gap 8 (5-15); BUN/Creatinine Ratio 22.5 (10.0-20.0); Blood Urea Nitrogen 16 mg/dL (9-23); Calcium 10.0 mg/dL (8.7-10.4); Carbon Dioxide 25 mmol/L (20-31); Glucose 88 mg/dL (74-106); Potassium 3.7 mmol/L (3.5-5.1); Sodium 141 mmol/L (136-145); Total Protein 6.5 g/dL (5.7-8.2)
[2025-01-07 05:56] LABS: Bilirubin, Total 1.1 mg/dL (0.2-1.0)
[2025-01-07 06:02] LABS: Chloride 108 mmol/L (98-107)
[2025-01-07 09:01] LABS: INR 1.03 (0.9-1.15); Partial Thromboplastin Time 31.6 SEC (24.5-34.5); Prothrombin Time 10.9 sec (9.3-11.8)
[2025-01-07] MEDS ORDERED: PATIENTS OWN MEDICATION (Losartan Potassium 1 TAB) PO SCH (10:00)
[2025-01-07] MEDS ORDERED: PATIENTS OWN MEDICATION (Rosuvastatin Calcium 1 TAB) PO SCH (10:00)
[2025-01-07] MEDS: LOSARTAN POTASSIUM 50 MG TAB PO SCH (10:16)
[2025-01-07 10:19] LABS: Triglycerides 106 mg/dL (< 150)
[2025-01-07 10:21] LABS: Cholesterol 112 mg/dL (< 200)
[2025-01-07 10:29] LABS: HDL Cholesterol 39 mg/dL (40-59)
[2025-01-07] MEDS: LACTATED RINGER'S 1,000 ML IV SCH (15:21)
[2025-01-07] MEDS: PANTOPRAZOLE 40 MG/10 ML VIAL INJ IV ONE (15:21)
[2025-01-07] MEDS: BACLOFEN 10 MG TAB PO ONE (17:42)
[2025-01-07] MEDS: ERGOCALCIFEROL 50,000 UNIT(1.25MG) CAP PO SCH (17:42)
--- NOTE | 2025-01-07 18:31 | DVHPNRES ---
Progress Note Date Seen: Jan 07, 2025 Resident Creating Document: MARIBEL SHEA RESIDENT Medical Necessity Reason Pt with a Central, PICC or Fol: No Subjective Review of Systems 79-year-old woman with past medical history of GERD, hyperlipidemia, hypertension and UTIs came to the hospital for nausea and vomiting. Patient was seen here on Sunday for left flank pain and nausea in given TMP SMX, gabapentin and sent home. Yesterday after the medication she felt worse and began vomiting for which she came to the emergency department. Patient denies any sick contacts, recent travel, any food that might have provoked it, urinary symptoms, diarrhea or chest pain. PMH: Hypertension, hyperlipidemia PSH: Cholecystectomy, other(better surgery) Social history: Patient lives with her family. denies smoking, drinking alcohol or taking any other illicit drugs. ROS: Today the patient reports that she still has the flank pain but it has decreased since she received the medication on Sunday which was gabapentin. She says that her vomiting has stopped now that she feels much better. We gave the patient baclofen for musculoskeletal pain. We also gave her pantoprazole. Vitamin-D was repleted, we put her on full liquid diet, IV ringer lactate has been started. We have also sent down thyroid tests which showed euthyroid sick syndrome. Rest of the ROS is negative Objective vital signs Vital Sign Date Time Temp Pulse Resp B/P (MAP) Pulse Ox O2 Delivery O2 Flow Rate FiO2 01/07/25 16:53 97.8 55 17 141/81 (101) 98 97.8 01/07/25 08:30 Room Air* 0 21 Total Intake and Output 01/06/25 01/06/25 01/07/25 15:00 23:00 07:00 Intake Total 500 ml 200 ml Balance 500 ml 200 ml medications Current Medications Medications Dose Ordered Sig/Leonel Route Start Time Stop Time Status Last Admin Dose Admin Acetaminophen/ Hydrocodone Bitart 1 tab Q4HP PRN PO 01/06/25 14:30 Ondansetron HCl 4 mg Q4HP PRN IV 01/06/25 14:30 Docusate Sodium 100 mg BIDPRN PRN PO 01/06/25 14:30 Acetaminophen 650 mg Q6HP PRN PO 01/06/25 14:30 Patient Own Medication 1 tab DAILY PO 01/07/25 10:00 UNV Patient Own Medication 1 tab DAILY PO 01/07/25 10:00 UNV Atorvastatin Calcium 20 mg HS PO 01/06/25 22:00 Losartan Potassium 100 mg DAILY PO 01/07/25 10:00 01/07/25 10:16 100 MG Metoclopramide HCl 5 mg Q6HPRN PRN IV 01/06/25 17:30 Lactated Ringer's 1,000 ml @ 100 mls/hr Q10H IV 01/07/25 13:30 01/07/25 15:21 100 MLS/HR Pantoprazole Sodium 40 mg DAILY IV 01/08/25 10:00 Ergocalciferol 50,000 unit Q7D PO 01/07/25 17:00 01/07/25 17:42 50,000 UNIT Baclofen 5 mg HS PO 01/08/25 22:00 Examination Pt is lying on bed General Appearance: Alert, Oriented X3, Cooperative, Not in acute distress HEENT: Atraumatic, Mucous membranes moist/pink Respiratory: Clear to auscultation, Normal air movement, No added sounds Cardiovascular: Regular rate, Normal S1, Normal S2, No murmurs Abdominal: Active bowel sounds, Soft, no distention, tenderness on the left flank Extremities: No edema, Normal pulses, No tenderness/swelling Skin: No Significant rash, except past surgical scars Neuro: Normal speech, sensorimotor deficits none Psych/Mental Status: Mental status NL, Mood NL Nurse was there as night time babysitter during examination laboratory and microbiology Laboratory Tests 01/07/25 05:16 Test 01/07/25 05:16 Range/Units Serum Glucose 88 74-106 mg/dL Labs and/or images reviewed: Labs reviewed by me, Image(s) reviewed by me Problem List/Assessment/Plan Problem List/Assessment/Plan #Intractable abdominal pain, rule out pyelonephritis #rule out nephrolithiasis -usg: Echogenic liver which can be seen with hepatic steatosis, cirrhosis -CT abd/pelvis: No acute intraabdominal abnormality. No kidney stones seen. -pantoprazole, ondansetron, docusate sodium -ringer lactate IV -[place] for pain #uncontrolled hypertension -continue losartan #left flank pain possibly due to musculoskeletal strain -baclofen -ice packs #Vitamin-D deficiency -Repleted #history of hyperlipidemia -Continue atorvastatin GI prophylaxis: pantoprazole DVT prophylaxis: ambulating Goals of care discussed with the patient for more than 27 minutes: Full code status Case discussed with , patient and nurse. Plan discussed with: Patient, Other (rn) MARIBEL SHEA RESIDENT Jan 07, 2025 18:31
[2025-01-07] MEDS: ACETAMINOPHEN 325 MG TAB PO PRN (21:29)
[2025-01-08 01:00] VITALS: BP 126/79; PULSE 79; RESP 18; TEMP 97.8; O2SAT 96
[2025-01-08 04:50] VITALS: BP 119/79; PULSE 69; RESP 18; TEMP 97.7; O2SAT 97
[2025-01-08 08:13] VITALS: RESP 16
[2025-01-08 09:00] VITALS: BP 132/86; PULSE 67; RESP 16; TEMP 97.7; O2SAT 93
[2025-01-08] MEDS ORDERED: ERGO1CAP23 PO (10:27)
[2025-01-08] MEDS ORDERED: DOCU-265 PO (10:27)
[2025-01-08] MEDS ORDERED: BACL10TA PO (10:27)
[2025-01-08] MEDS: BISACODYL 5 MG EC TAB PO ONE (10:42)
[2025-01-08] MEDS: LACTULOSE 20Gm/30ML SOLN PO ONE (10:42)
[2025-01-08] MEDS: DOCUSATE SOD 100 MG CAP PO PRN (10:45)
[2025-01-08] MEDS: cefTRIAXone 1GM/50ML D5W 50 ML IV ONE (11:10)
[2025-01-08] MEDS: PANTOPRAZOLE 40 MG/10 ML VIAL INJ IV SCH (11:11)
--- NOTE | 2025-01-08 11:11 | DVHDSRES ---
Discharge Summary Date of Admission Resident Creating Document: MARIBEL SHEA RESIDENT Jan 06, 2025 at 14:27 Date of Discharge: Jan 08, 2025 Labs/Diagnostic Data: Laboratory Results Test 01/07/25 15:10 01/07/25 09:16 01/07/25 08:59 01/07/25 05:16 Free Thyroxine (T4) Calculated 0.89 ng/dL (0.89-1.76) Vitamin B12 Level 1432 pg/mL (211-911) Vitamin D 25-Hydroxy 35.2 ng/mL (30.0-100) Erythrocyte Sedimentation Rate 14 mm/hr (0-20) White Blood Count 7.3 10^3/uL (4.4-10.8) Red Blood Count 4.31 10^6/uL (4.0-5.20) Hemoglobin 14.2 g/dL (12.2-16.2) Hematocrit 39.2 % (36.0-46.0) Mean Corpuscular Volume 91.0 fL (80.0-100.0) Mean Corpuscular Hemoglobin 32.9 pg (28.0-32.0) Mean Corpuscular Hemoglobin Concent 36.2 g/dL (32.0-36.0) Red Cell Distribution Width 13.6 % (11.8-14.3) Platelet Count 242 10^3/uL (140-450) Mean Platelet Volume 8.0 fL (6.9-10.8) Neutrophils (%) (Auto) 65.3 % (37.0-80.0) Lymphocytes (%) (Auto) 26.4 % (10.0-50.0) Monocytes (%) (Auto) 5.7 % (0.0-12.0) Eosinophils (%) (Auto) 1.7 % (0.0-7.0) Basophils (%) (Auto) 0.9 % (0.0-2.0) Neutrophils # (Auto) 4.8 10 ^3/uL (1.6-8.6) Lymphocytes # (Auto) 1.9 10 ^3/uL (0.4-5.4) Monocytes # (Auto) 0.4 10 ^3/uL (0-1.3) Eosinophils # (Auto) 0.1 10 ^3/uL (0-0.8) Basophils # (Auto) 0.1 10 ^3/uL (0-0.2) Nucleated Red Blood Cells 0.0 % Prothrombin Time 10.9 sec (9.3-11.8) Prothrombin Time INR 1.03 (0.9-1.15) Activated Partial Thromboplast Time 31.6 SEC (24.5-34.5) Sodium Level 141 mmol/L (136-145) Potassium Level 3.7 mmol/L (3.5-5.1) Chloride Level 108 mmol/L (98-107) Carbon Dioxide Level 25 mmol/L (20-31) Anion Gap 8 (5-15) Blood Urea Nitrogen 16 mg/dL (9-23) Creatinine 0.71 mg/dL (0.550-1.02) Glomerular Filtration Rate Calc 86 mL/min (>90) BUN/Creatinine Ratio 22.5 (10.0-20.0) Serum Glucose 88 mg/dL (74-106) Hemoglobin A1c 5.1 % A1C (<5.7) Calcium Level 10.0 mg/dL (8.7-10.4) Total Bilirubin 1.1 mg/dL (0.2-1.0) Aspartate Amino Transferase (AST) 28 U/L (13-40) Alanine Aminotransferase (ALT) 39 U/L (7-40) Alkaline Phosphatase 71 U/L (46-116) C-Reactive Protein High Sensitivity 0.27 mg/dL (<1.0) Total Protein 6.5 g/dL (5.7-8.2) Albumin 4.4 g/dL (3.2-4.8) Triglycerides Level 106 mg/dL (< 150) Cholesterol Level 112 mg/dL (< 200) LDL Cholesterol 56 mg/dL (< 100) HDL Cholesterol 39 mg/dL (40-59) Thyroid Stimulating Hormone (TSH) 0.31 uIU/mL (0.55-4.78) Hepatitis B Core Total Antibody Negative (Negative) Hepatitis C Antibody Negative (Negative) Test 01/06/25 11:24 01/06/25 11:08 Lipase 36 U/L (12-53) Urine Color Yellow (Yellow) Urine Clarity Clear (Clear) Urine pH 6.0 (5.0-9.0) Urine Specific [place] 1.023 (1.001-1.035) Urine Protein 1+ (Negative) Urine Ketones Negative (Negative) Urine Blood Negative /uL (Negative) Urine Nitrite Negative (Negative) Urine Bilirubin Negative (Negative) Urine Urobilinogen Normal mg/dL (Negative) Urine Leukocyte Esterase Negative /uL (Negative) Urine RBC 1 /hpf (0 - 4) Urine Microscopic WBC 2 /HPF (0-5) Urine Squamous Epithelial Cells Few /hpf (<5) Urine Bacteria None seen /hpf (None Seen) Urine Mucus Few (None Seen) Urine Glucose Normal mg/dL (Normal) Other Laboratory Tests 01/07/25 05:16 Brief Hx & Hospital Course: 79-year-old woman with past medical history of GERD, hyperlipidemia, hypertension and UTIs came to the hospital for nausea and vomiting. Patient was seen here on Sunday for left flank pain and nausea in given TMP SMX, gabapentin and sent home. Yesterday after the medication she felt worse and began vomiting for which she came to the emergency department. Patient denies any sick contacts, recent travel, any food that might have provoked it, urinary symptoms, diarrhea or chest pain. PMH: Hypertension, hyperlipidemia PSH: Cholecystectomy, other(better surgery) Social history: Patient lives with her family. denies smoking, drinking alcohol or taking any other illicit drugs. Brief history of hospitalization Patient came for intractable abdominal pain and we ruled out Pyelonephritis and nephrolithiasis. During her hospital stay, CT abdomen and pelvis showed no acute intra-abdominal abnormality and no kidney stone was seen. USG showed echogenic liver which can be seen with hepatic steatosis and cirrhosis. Patient had gastroenteritis of infectious etiology, acute allergic reaction due to iatrogenic cause, Bactrim-Which was discontinued. we started her on pantoprazole, ondansetron and docusate sodium. We also gave the patient ringer lactate IV, Ceftriaxone and [place] for her pain and patient reported feeling better with the medication provided. Patient also had flank pain due to muscular skeletal strain for which we gave her baclofen. For vitamin-D deficiency repleted her vitamin-D and for history of hyperlipidemia we continued atorvastatin. Patient also had constipation for which we gave docusate and lactulose. patient is feeling better and is stable now for discharge, she is not vomiting, nauseated and is able to tolerate diet. She reports feeling better regarding her back pain that has decreased in severity. For her back pain we are discharging her on baclofen 10 mg PRN and have counseled her to put ice packs. patient agreed to discharge plan. Side effects of baclofen has been discussed with her. Pt is lying on bed General Appearance: Alert, Oriented X3, Cooperative, Not in acute distress HEENT: Atraumatic, Mucous membranes moist/pink Respiratory: Clear to auscultation, Normal air movement, No added sounds Cardiovascular: Regular rate, Normal S1, Normal S2, No murmurs Abdominal: Active bowel sounds, Soft, no distention, tenderness on the left flank Extremities: No edema, Normal pulses, No tenderness/swelling Skin: No Significant rash, except past surgical scars Neuro: Normal speech, sensorimotor deficits none Psych/Mental Status: Mental status NL, Mood NL Nurse was there as camera engineer during examination Instructions: Follow up with PCP please Take baclofen 10 mg PRN Put ice packs on the back for flank pain Operations or Procedures CT CT AB PEL WO CON-NO ORAL OR IV IMPRESSION: No acute intraabdominal abnormality. No kidney stones seen. ORDERING PHYSICIAN: FANNY GARCIA PROCEDURE(s): LIVUS - LIVER REASON: elevated liver enzymes ORDER NUMBER(s): [id number], ACCESSION NUMBER(s): [id number] Technique: Real-time ultrasound imaging of the abdomen was performed with grayscale and color Doppler. Impression: Echogenic liver which can be seen with hepatic steatosis, cirrhosis. Condition at Discharge: Stable Final Diagnosis/Problems List #acute allergic reaction due to iatrogenic cause, bactrim #gastrogenteritis, infectious etiology, #ruled out pyelonephritis/ruled out nephrolithiasis #uncontrolled hypertension #left flank pain possibly due to musculoskeletal strain #Vitamin-D deficiency #history of hyperlipidemia Discharge Disposition: Home Discharge Instruct/Medications Diet: Consistent carbohydrate, Cardiac 2g Na,low cholest Activity: No Restrictions, As Tolerated Follow Up/Referral: Follow up with PCP within 7 days Follow up in discharge clinic within 7 days Medications: Tab Baclofen 10 mg orally as needed Scheduled Acetaminophen (Acetaminophen), 500 MG PO Q4HPRN Baclofen (Baclofen), 10 MG PO HS Ergocalciferol (Vitamin D 01166 Unit), 50,000 UNIT PO Q7D Losartan Potassium (Losartan Potassium), 1 TAB PO DAILY, (Reported) Meloxicam (Meloxicam), 1 TAB PO DAILY, (Reported) Omeprazole (Gnp Omeprazole), 1 TAB PO DAILY, (Reported) Oxybutynin Chloride (Ditropan Xl), 5 MG PO BID, (Reported) Pantoprazole Sodium Sesquihydr (Protonix), 40 MG PO DAILY, (Reported) Promethazine Hcl (Promethazine Hcl), 1 TAB PO Q6HPRN, (Reported) Rosuvastatin Calcium (Rosuvastatin Calcium), 1 TAB PO DAILY, (Reported) Scheduled PRN Docusate Sodium (Docusate Sodium), 100 MG PO BIDPRN PRN Discontinued Medications Amlodipine Besylate (Amlodipine Besylate), 1 TAB PO DAILY Gabapentin (Once-Daily) (Gabapentin), 300 MG PO Q6HP PRN Losartan Potassium (Losartan Potassium), 50 MG PO BID, (Reported) Ondansetron (Zofran Odt), 1 TAB SL Q6HP PRN for NAUSEA / VOMITING, (Reported) Sulfamethoxazole W/Trimethopri (Bactrim Ds Tablet), 1 TAB PO BID Discharge Statement: "Patient was advised to return to the ER or call 911 if any headaches, dizziness, shortness of breath, chest pain, abdominal pain, bleeding, fevers, or worsening of medical condition. Patient was counseled about treatment plan, medications, possible side effects, patientverbalized understanding. All questions were answered to the best of my ability. This discharge took greater then 30 minutes in planning, reviewing documentation, counseling the patient, and discussing with other team members." ASSESSMENT ASSESSMENT Assessment MARIBEL SHEA RESIDENT Jan 08, 2025 11:11
[2025-01-08 13:00] VITALS: BP 135/78; PULSE 78; RESP 17; TEMP 97.5; O2SAT 94
[2025-01-08 16:38] VITALS: BP 153/86; PULSE 79; RESP 16; TEMP 97.5; O2SAT 97
[2025-01-08] MEDS ORDERED: BACLOFEN 10 MG TAB PO SCH (22:00)
== END 2025-01-08 17:31 | disposition home or self-care (01) | DRG 249 ==
LOC: ER 10:43 → OVERFLOW 14:27 → EAST 22:57
PROVIDERS: ADMIT Student in an Organized Health Care Education/Training Program; ATTEND Emergency Medicine
DX: A09 Infectious gastroenteritis and colitis, unspecified (principal); E55.9 Vitamin D deficiency, unspecified; I10 Essential (primary) hypertension; E78.5 Hyperlipidemia, unspecified; R73.9 Hyperglycemia, unspecified; R74.01 Elevation of levels of liver transaminase levels; K21.9 Gastro-esophageal reflux disease without esophagitis; T36.8X5A Adverse effect of other systemic antibiotics, initial encounter; Z90.49 Acquired absence of other specified parts of digestive tract; Z91.012 Allergy to eggs; Z88.8 Allergy status to other drugs, medicaments and biological substances; Z90.710 Acquired absence of both cervix and uterus; Y92.89 Other specified places as the place of occurrence of the external cause
CPT/HCPCS: 36415; 74176; 76705; 80053; 80061; 81001; 82306; 82607; 83036; 83690; 84439; 84443; 85025; 85610; 85652; 85730; 86141; 86803; 96361; 96374; 96375; G0378; J2405; J2470; J3490